=== PATIENT | male | born 1990 | race Two or more races ===

== ENCOUNTER 2023-02-21 21:16 | Inpatient (IN) | payer MEDICAID, OTHER ==
[~2023-02-21] VITALS: Ht 185.4 cm; Wt 68.0 kg
[2023-02-21 22:47] LABS: Alanine Aminotransferase 22 U/L (7-40); Albumin 3.9 g/dL (3.2-4.8); Alkaline Phosphatase 89 U/L (46-116); Anion Gap 9 (5-15); Aspartate Aminotransferase 49 U/L (13-40); BUN/Creatinine Ratio 15.6 (10.0-20.0); Blood Urea Nitrogen 23 mg/dL (9-23); Calcium 8.6 mg/dL (8.7-10.4); Carbon Dioxide 26 mmol/L (20-30); Chloride 91 mmol/L (98-107); Glucose 162 mg/dL (74-106); Magnesium 1.8 mg/dL (1.6-2.6); Potassium 3.5 mmol/L (3.5-5.1); Sodium 126 mmol/L (136-145)
[2023-02-21 22:48] LABS: Bilirubin, Total 1.1 mg/dL (0.2-1.0); Total Protein 7.3 g/dL (5.7-8.2)
[2023-02-21 23:26] LABS: Basophils # (auto) 0.1 10 ^3/uL (0-0.2); Basophils % (auto) 0.5 % (0.0-2.0); Eosinophils # (auto) 0 10 ^3/uL (0-0.8); Eosinophils % (auto) 0.4 % (0.0-7.0); Hematocrit 40.7 % (41.0-53.0); Hemoglobin 13.9 g/dL (13.5-17.5); Lymphocytes # (auto) 0.8 10 ^3/uL (0.4-5.4); Lymphocytes % (auto) 6.9 % (10.0-50.0); Mean Corpuscular Hemoglobin 34.7 pg (28.0-32.0); Mean Corpuscular Hgb Conc. 34.2 g/dL (32.0-36.0); Mean Corpuscular Volume 101.4 fL (80.0-100.0); Monocytes # (auto) 0.9 10 ^3/uL (0-1.3); Monocytes % (auto) 7.8 % (0.0-12.0); Neutrophils # (auto) 9.4 10 ^3/uL (1.6-8.6); Neutrophils % (auto) 84.4 % (37.0-80.0); Nucleated Red Blood Cells % 0.1 %; Red Blood Cells 4.01 10^6/uL (4.5-5.90); White Blood Cell 11.2 10^3/uL (4.4-10.8)
[2023-02-22] MEDS ORDERED: SODIUM CHLORIDE 0.9% 2,300 ML IV ONE (01:00)
[2023-02-22 01:11] LABS: INR 1.25 (0.9-1.15); Partial Thromboplastin Time 29.7 SEC (24.5-34.5); Prothrombin Time 12.9 sec (9.3-11.8)
[2023-02-22] MEDS ORDERED: DICYCLOMINE HCL (10MG/ML) 2 ML AMPULE IM ONE (01:30)
[2023-02-22] MEDS ORDERED: ONDANSETRON HCL 4 MG/2 ML VIAL IV ONE (01:30)
[2023-02-22 01:33] LABS: Urine Epithelial Cast None Seen /hpf (<5)
[2023-02-22 01:45] LABS: Urine Amorphous Crystal FEW /hpf (None Seen); Urine Bacteria NONE SEEN /hpf (None Seen); Urine Blood Negative /uL (Negative); Urine Clarity HAZY (Clear); Urine Color Yellow (Yellow); Urine Mucus FEW (None Seen); Urine Protein, UAD 1+ (Negative); Urine Specific Gravity 1.024 (1.001-1.035); Urine Urobilinogen Normal (Negative); Urine WBC 4 /hpf (0 - 3)
[2023-02-22 01:57] LABS: Amphetamine Screen, Urine Neg (NEGATIVE); Barbiturate Scree,Urine Neg (NEGATIVE); Benzodiazephine Screen, Urine Neg (NEGATIVE); Cannabinoid Screen, Urine Neg (NEGATIVE); Cocaine Screen, Urine Neg (NEGATIVE); Opiate Scree,Urine Neg (NEGATIVE); Phencyclidine Screen, Urine Neg (NEGATIVE)
[2023-02-22 02:22] LABS: Acetaminophen < 2.0 UG/ML (10.0-20.0)
[2023-02-22 02:24] LABS: Salicylate < 3.0 mg/dL (2.8-20.0)
[2023-02-22 02:36] LABS: Free T3 2.26 pg/mL (2.3-4.2)
[2023-02-22 04:58] LABS: COVID19 ANTIGEN SOFIA FIA NEGATIVE (NEGATIVE); Rapid Influenza A Negative (Negative); Rapid Influenza B Negative (Negative)
[2023-02-22 07:49] VITALS: PULSE 117; RESP 16; O2SAT 98
[2023-02-22] MEDS ORDERED: NITROGLYCERIN 0.4 MG SL TAB SL PRN (09:00)
[2023-02-22] MEDS ORDERED: ONDANSETRON HCL 4 MG/2 ML VIAL IV PRN (09:00)
[2023-02-22] MEDS ORDERED: DOCUSATE SOD 100 MG CAP PO PRN (09:00)
[2023-02-22] MEDS ORDERED: MORPHINE SULFATE INJ 2 MG/ml SYRG IV PRN ×2 (09:00)
[2023-02-22] MEDS ORDERED: HYDROcodone-ACET 5/325MG TAB PO PRN (09:00)
[2023-02-22] MEDS: SODIUM CHLORIDE 0.9% 1,000 ML IV SCH ×4 (09:30→22:11)
[2023-02-22 09:37] LABS: Basophils # (auto) 0.1 10 ^3/uL (0-0.2); Basophils % (auto) 0.8 % (0.0-2.0); Eosinophils # (auto) 0.1 10 ^3/uL (0-0.8); Eosinophils % (auto) 1.9 % (0.0-7.0); Hematocrit 35.7 % (41.0-53.0); Hemoglobin 12.1 g/dL (13.5-17.5); Lymphocytes # (auto) 0.9 10 ^3/uL (0.4-5.4); Mean Corpuscular Hemoglobin 34.3 pg (28.0-32.0); Mean Corpuscular Hgb Conc. 33.9 g/dL (32.0-36.0); Mean Corpuscular Volume 101.2 fL (80.0-100.0); Monocytes # (auto) 0.9 10 ^3/uL (0-1.3); Monocytes % (auto) 11.7 % (0.0-12.0); Neutrophils # (auto) 5.7 10 ^3/uL (1.6-8.6); Neutrophils % (auto) 74.6 % (37.0-80.0); Nucleated Red Blood Cells % 0.1 %; Red Blood Cells 3.52 10^6/uL (4.5-5.90); Red Cell Distribution Width 13.7 % (11.8-14.3); White Blood Cell 7.7 10^3/uL (4.4-10.8)
[2023-02-22] MEDS: ENOXAPARIN SOD 40 MG/0.4 ML SYRINGE SC SCH (10:44)
[2023-02-22] MEDS ORDERED: DEXTROSE (50%) 50ML SYRG IV PRN (10:45)
[2023-02-22] MEDS ORDERED: PANTOPRAZOLE 40 MG/10 ML VIAL INJ IV ONE (10:45)
[2023-02-22 11:41] VITALS: PULSE 112; RESP 14; O2SAT 96
[2023-02-22 11:53] LABS: Alanine Aminotransferase 23 U/L (7-40); Albumin 3.5 g/dL (3.2-4.8); Alkaline Phosphatase 77 U/L (46-116); Anion Gap 15 (5-15); Aspartate Aminotransferase 48 U/L (13-40); Blood Urea Nitrogen 24 mg/dL (9-23); Calcium 8.5 mg/dL (8.5-10.1); Carbon Dioxide 21 mmol/L (20-30); Chloride 96 mmol/L (98-107); Cholesterol 63 mg/dL (< 200); Glucose 126 mg/dL (74-106); HDL Cholesterol 8 mg/dL (40-59); LDL Cholesterol 29 mg/dL (< 100); Potassium 3.7 mmol/L (3.5-5.1); Triglycerides 135 mg/dL (< 150)
[2023-02-22 11:54] LABS: Bilirubin, Total 0.8 mg/dL (0.2-1.0); Total Protein 6.4 g/dL (5.7-8.2)
[2023-02-22 11:55] LABS: Sodium 132 mmol/L (136-145)
[2023-02-22] MEDS ORDERED: MEROPENEM 1GM IVPB 100 ML IV SCH (14:00)
[2023-02-22] MEDS: ACCU-CHEK COMFORT CURVE STRIP VI SCH ×3 (14:43→22:10)
[2023-02-22 20:30] VITALS: PULSE 112; RESP 26; O2SAT 96
[2023-02-22 23:30] VITALS: BP 109/58; PULSE 127; RESP 17; TEMP 97.5; O2SAT 94
[2023-02-23] VITALS (7 sets, daily range): BP systolic 86–118; BP diastolic 53–66; PULSE 112–126; RESP 16–21; TEMP 97.9–103; O2SAT 93–98
[2023-02-23] MEDS: ACCU-CHEK COMFORT CURVE STRIP VI SCH ×6 (02:00→21:26)
[2023-02-23] MEDS: SODIUM CHLORIDE 0.9% 1,000 ML IV SCH ×2 (06:20→13:00)
[2023-02-23 06:42] LABS: Eosinophils # (auto) 0.1 10 ^3/uL (0-0.8); Hematocrit 31.5 % (41.0-53.0); Hemoglobin 10.7 g/dL (13.5-17.5); Lymphocytes # (auto) 0.7 10 ^3/uL (0.4-5.4); Monocytes # (auto) 0.7 10 ^3/uL (0-1.3); Monocytes % (auto) 9.5 % (0.0-12.0); Neutrophils # (auto) 6.3 10 ^3/uL (1.6-8.6); Red Blood Cells 3.11 10^6/uL (4.5-5.90); White Blood Cell 7.9 10^3/uL (4.4-10.8)
[2023-02-23 06:45] LABS: Basophils # (auto) 0.1 10 ^3/uL (0-0.2); Basophils % (auto) 0.7 % (0.0-2.0); Lymphocytes % (auto) 9.5 % (10.0-50.0); Mean Corpuscular Hemoglobin 34.3 pg (28.0-32.0); Mean Corpuscular Hgb Conc. 33.9 g/dL (32.0-36.0); Mean Corpuscular Volume 101.2 fL (80.0-100.0); Neutrophils % (auto) 79.3 % (37.0-80.0); Red Cell Distribution Width 13.8 % (11.8-14.3)
[2023-02-23 07:04] LABS: Alanine Aminotransferase 16 U/L (7-40); Albumin 2.7 g/dL (3.2-4.8); Alkaline Phosphatase 59 U/L (46-116); Anion Gap 12 (5-15); Aspartate Aminotransferase 30 U/L (13-40); BUN/Creatinine Ratio 19.5 (10.0-20.0); Bilirubin, Total 0.7 mg/dL (0.2-1.0); Blood Urea Nitrogen 17 mg/dL (9-23); Calcium 7.8 mg/dL (8.5-10.1); Carbon Dioxide 20 mmol/L (20-30); Chloride 103 mmol/L (98-107); Glucose 97 mg/dL (74-106); Sodium 135 mmol/L (136-145); Total Protein 5.2 g/dL (5.7-8.2)
[2023-02-23 08:55] LABS: Hepatitis B Surface Antigen Negative (Negative)
[2023-02-23 09:17] LABS: Hepatitis C Antibody Negative (Negative)
[2023-02-23] MEDS: PANTOPRAZOLE 40 MG/10 ML VIAL INJ IV SCH (09:42)
[2023-02-23] MEDS: ENOXAPARIN SOD 40 MG/0.4 ML SYRINGE SC SCH (09:43)
[2023-02-23 11:24] LABS: Free T4 (Free Thyroxine) 1.2 ng/dL (0.89-1.76)
[2023-02-23 14:46] LABS: Folate (Folic Acid) 7.04 ng/mL (>5.38)
[2023-02-23] MEDS: FOLIC ACID 1 MG, MULTIPLE VITAMIN 10 ML, MAGNESIUM SULF SDV 50% 8 MEQ, THIAMINE INJ 100... INJ SCH ×5 (18:38)
[2023-02-24] VITALS (7 sets, daily range): BP systolic 86–118; BP diastolic 38–70; PULSE 55–138; RESP 16–22; TEMP 97.4–100.5; O2SAT 90–99
[2023-02-24] MEDS: ACCU-CHEK COMFORT CURVE STRIP VI SCH ×3 (01:27→09:40)
[2023-02-24] MEDS: SODIUM CHLORIDE 0.9% 1,000 ML IV SCH ×2 (03:06→09:00)
[2023-02-24] MEDS: PANTOPRAZOLE 40 MG/10 ML VIAL INJ IV SCH (09:40)
[2023-02-24] MEDS: ENOXAPARIN SOD 40 MG/0.4 ML SYRINGE SC SCH (09:40)
[2023-02-24] MEDS ORDERED: MORPHINE SULFATE INJ 2 MG/ml SYRG IV PRN (10:15)
[2023-02-24] MEDS ORDERED: LORazepam 2MG/ML-1ML VIAL IV PRN (11:00)
[2023-02-24] MEDS: ACETAMINOPHEN 325 MG TAB PO PRN (11:18)
[2023-02-24 11:49] LABS: Chloride 100 mmol/L (98-107); Potassium 3.9 mmol/L (3.5-5.1); Sodium 131 mmol/L (136-145)
[2023-02-24 11:50] LABS: Anion Gap 9 (5-15); Calcium 7.8 mg/dL (8.5-10.1); Carbon Dioxide 22 mmol/L (20-30)
[2023-02-24 11:55] LABS: BUN/Creatinine Ratio 11.4 (10.0-20.0); Basophils # (auto) 0 10 ^3/uL (0-0.2); Basophils % (auto) 0.6 % (0.0-2.0); Blood Urea Nitrogen 9 mg/dL (9-23); Eosinophils # (auto) 0.1 10 ^3/uL (0-0.8); Eosinophils % (auto) 1.9 % (0.0-7.0); Glucose 132 mg/dL (74-106); Hemoglobin 10.7 g/dL (13.5-17.5); Lymphocytes # (auto) 0.5 10 ^3/uL (0.4-5.4); Mean Corpuscular Hemoglobin 33.9 pg (28.0-32.0); Mean Corpuscular Hgb Conc. 33.5 g/dL (32.0-36.0); Mean Corpuscular Volume 101.2 fL (80.0-100.0); Monocytes # (auto) 0.7 10 ^3/uL (0-1.3); Monocytes % (auto) 8.7 % (0.0-12.0); Neutrophils # (auto) 6.3 10 ^3/uL (1.6-8.6); Neutrophils % (auto) 81.8 % (37.0-80.0); Red Blood Cells 3.16 10^6/uL (4.5-5.90); White Blood Cell 7.7 10^3/uL (4.4-10.8)
[2023-02-24] MEDS: LACTATED RINGER'S 1,000 ML IV SCH (12:32)
[2023-02-24] MEDS: FOLIC ACID 1 MG, MULTIPLE VITAMIN 10 ML, MAGNESIUM SULF SDV 50% 8 MEQ, THIAMINE INJ 100... INJ SCH ×5 (18:35)
[2023-02-25] VITALS (20 sets, daily range): BP systolic 102–119; BP diastolic 58–77; PULSE 118–137; RESP 18–22; TEMP 98–102; O2SAT 91–100
[2023-02-25] MEDS: LACTATED RINGER'S 1,000 ML IV SCH ×3 (02:43→17:00)
[2023-02-25 05:26] LABS: Hematocrit 30.8 % (41.0-53.0); Hemoglobin 10.6 g/dL (13.5-17.5); Mean Corpuscular Hemoglobin 34.5 pg (28.0-32.0); Mean Corpuscular Hgb Conc. 34.3 g/dL (32.0-36.0); Mean Corpuscular Volume 100.7 fL (80.0-100.0); Red Blood Cells 3.06 10^6/uL (4.5-5.90); Red Cell Distribution Width 13.6 % (11.8-14.3); White Blood Cell 9.3 10^3/uL (4.4-10.8)
[2023-02-25 05:33] LABS: Anion Gap 5 (5-15); Carbon Dioxide 27 mmol/L (20-30); Chloride 99 mmol/L (98-107); Potassium 3.7 mmol/L (3.5-5.1); Sodium 131 mmol/L (136-145)
[2023-02-25 05:35] LABS: Calcium 7.5 mg/dL (8.7-10.4)
[2023-02-25 05:39] LABS: BUN/Creatinine Ratio 9.2 (10.0-20.0); Blood Urea Nitrogen 7 mg/dL (9-23); Glucose 110 mg/dL (74-106); Lipase 26 U/L (12-53)
[2023-02-25 06:16] LABS: Basophils % (manual) 0 (0.0-2.0); Blast Cells 0; Metamyelocytes % 0; Myelocytes % 0; Promyelocytes % 0; Reactive Lymphocytes 0
[2023-02-25 08:16] LABS: Band Neutrophils % (manual) 12; Eosinophils % (manual) 2 (0-7); Lymphocytes % (manual) 9 (10.0-50.0); Macrocytosis Slight; Monocytes % (manual) 5 (0-12); Platelet Estimate Adequate
[2023-02-25] MEDS ORDERED: cefTRIAXone 1GM/50ML D5W 50 ML IV SCH (09:00)
[2023-02-25] MEDS: PANTOPRAZOLE 40 MG/10 ML VIAL INJ IV SCH (09:43)
[2023-02-25] MEDS: ENOXAPARIN SOD 40 MG/0.4 ML SYRINGE SC SCH (09:44)
[2023-02-25] MEDS: ACETAMINOPHEN 325 MG TAB PO PRN ×2 (09:57→20:33)
[2023-02-25] MEDS ORDERED: IOHEXOL 300 MG/ML 100ML BOTTLE IJ ONE (16:00)
[2023-02-25] MEDS: FOLIC ACID 1 MG, MULTIPLE VITAMIN 10 ML, MAGNESIUM SULF SDV 50% 8 MEQ, THIAMINE INJ 100... INJ SCH ×5 (18:15)
[2023-02-25] MEDS: MEROPENEM 1GM IVPB 100 ML IV SCH (21:56)
[2023-02-25] MEDS ORDERED: PIPERACILLIN-TAZOB 3.375GM 100 ML IV SCH (22:00)
[2023-02-26] VITALS (19 sets, daily range): BP systolic 99–119; BP diastolic 57–80; PULSE 103–130; RESP 16–37; TEMP 99.5–101.1; O2SAT 93–100
[2023-02-26] MEDS: ACETAMINOPHEN 325 MG TAB PO PRN ×3 (03:03→21:08)
[2023-02-26] MEDS: LACTATED RINGER'S 1,000 ML IV SCH ×3 (03:10→23:00)
[2023-02-26] MEDS: MEROPENEM 1GM IVPB 100 ML IV SCH ×3 (06:37→21:08)
[2023-02-26 09:18] LABS: Red Cell Distribution Width 13.8 % (11.8-14.3)
[2023-02-26 09:20] LABS: Hematocrit 31.6 % (41.0-53.0); Hemoglobin 10.7 g/dL (13.5-17.5); Mean Corpuscular Hemoglobin 34.8 pg (28.0-32.0); Mean Corpuscular Hgb Conc. 33.8 g/dL (32.0-36.0); Mean Corpuscular Volume 102.8 fL (80.0-100.0); Red Blood Cells 3.07 10^6/uL (4.5-5.90); White Blood Cell 8.4 10^3/uL (4.4-10.8)
[2023-02-26 09:24] LABS: Basophils % (manual) 0 (0.0-2.0); Blast Cells 0; Eosinophils % (manual) 0 (0-7); Metamyelocytes % 0; Myelocytes % 0; Promyelocytes % 0; Reactive Lymphocytes 0
[2023-02-26 09:29] LABS: Band Neutrophils % (manual) 7; Lymphocytes % (manual) 6 (10.0-50.0); Monocytes % (manual) 9 (0-12)
[2023-02-26 09:30] LABS: Macrocytosis Slight; Platelet Estimate Adequate
[2023-02-26 09:31] LABS: Alanine Aminotransferase 12 U/L (7-40); Albumin 2.9 g/dL (3.2-4.8); Alkaline Phosphatase 63 U/L (46-116); Anion Gap 9 (5-15); Aspartate Aminotransferase 21 U/L (13-40); Bilirubin, Total 0.7 mg/dL (0.2-1.0); Calcium 7.9 mg/dL (8.5-10.1); Carbon Dioxide 24 mmol/L (20-30); Chloride 101 mmol/L (98-107); Glucose 98 mg/dL (74-106); Potassium 3.6 mmol/L (3.5-5.1); Sodium 134 mmol/L (136-145); Total Protein 5.7 g/dL (5.7-8.2)
[2023-02-26 09:41] LABS: BUN/Creatinine Ratio 9.1 (10.0-20.0); Blood Urea Nitrogen < 5 mg/dL (9-23)
[2023-02-26] MEDS: ENOXAPARIN SOD 40 MG/0.4 ML SYRINGE SC SCH (10:02)
[2023-02-26] MEDS: PANTOPRAZOLE 40 MG/10 ML VIAL INJ IV SCH (10:02)
[2023-02-26] MEDS: FOLIC ACID 1 MG, MULTIPLE VITAMIN 10 ML, MAGNESIUM SULF SDV 50% 8 MEQ, THIAMINE INJ 100... INJ SCH ×5 (18:23)
[2023-02-26 20:06] LABS: Vitamin D 25-Hydroxy 4.4 ng/mL (.); Vitamin D-2 25-Hydroxy <1.0 ng/mL (.); Vitamin D-3 25-Hydroxy 4.4 ng/mL (.)
[2023-02-27] VITALS (25 sets, daily range): BP systolic 95–127; BP diastolic 58–79; PULSE 110–129; RESP 17–32; TEMP 98.5–101.9; O2SAT 95–100
[2023-02-27] MEDS: ACETAMINOPHEN 325 MG TAB PO PRN (04:45)
[2023-02-27] MEDS: MEROPENEM 1GM IVPB 100 ML IV SCH ×3 (04:45→22:58)
[2023-02-27 06:13] LABS: Basophils % (auto) 0.5 % (0.0-2.0); Eosinophils # (auto) 0.1 10 ^3/uL (0-0.8); Eosinophils % (auto) 1.2 % (0.0-7.0); Hematocrit 30.8 % (41.0-53.0); Mean Corpuscular Hemoglobin 34.4 pg (28.0-32.0)
[2023-02-27 06:15] LABS: Basophils # (auto) 0.1 10 ^3/uL (0-0.2); Hemoglobin 10.4 g/dL (13.5-17.5); Lymphocytes # (auto) 0.5 10 ^3/uL (0.4-5.4); Lymphocytes % (auto) 5.6 % (10.0-50.0); Mean Corpuscular Hgb Conc. 33.8 g/dL (32.0-36.0); Mean Corpuscular Volume 101.6 fL (80.0-100.0); Monocytes # (auto) 0.6 10 ^3/uL (0-1.3); Monocytes % (auto) 6.7 % (0.0-12.0); Neutrophils # (auto) 8.2 10 ^3/uL (1.6-8.6); Red Blood Cells 3.03 10^6/uL (4.5-5.90); White Blood Cell 9.6 10^3/uL (4.4-10.8)
[2023-02-27 06:27] LABS: Alanine Aminotransferase 10 U/L (7-40); Albumin 2.8 g/dL (3.2-4.8); Alkaline Phosphatase 71 U/L (46-116); Anion Gap 9 (5-15); BUN/Creatinine Ratio 12.3 (10.0-20.0); Blood Urea Nitrogen 7 mg/dL (9-23); Calcium 7.6 mg/dL (8.7-10.4); Carbon Dioxide 25 mmol/L (20-30); Chloride 98 mmol/L (98-107); Glucose 103 mg/dL (74-106); Potassium 3.8 mmol/L (3.5-5.1); Sodium 132 mmol/L (136-145)
[2023-02-27 06:28] LABS: Aspartate Aminotransferase 22 U/L (13-40); Bilirubin, Total 0.5 mg/dL (0.2-1.0); Total Protein 5.5 g/dL (5.7-8.2)
[2023-02-27] MEDS: PANTOPRAZOLE 40 MG/10 ML VIAL INJ IV SCH (10:48)
[2023-02-27] MEDS: LACTATED RINGER'S 1,000 ML IV SCH (10:49)
[2023-02-27] MEDS: ENOXAPARIN SOD 40 MG/0.4 ML SYRINGE SC SCH (10:49)
[2023-02-27 13:06] LABS: Mean Corpuscular Hemoglobin 33.9 pg (28.0-32.0); Mean Corpuscular Volume 103.4 fL (80.0-100.0)
[2023-02-27 13:07] LABS: Hematocrit 30.5 % (41.0-53.0); Mean Corpuscular Hgb Conc. 32.8 g/dL (32.0-36.0); Red Blood Cells 2.95 10^6/uL (4.5-5.90); White Blood Cell 11.1 10^3/uL (4.4-10.8)
[2023-02-27 13:17] LABS: Basophils % (manual) 0 (0.0-2.0); Blast Cells 0; Eosinophils % (manual) 0 (0-7); Metamyelocytes % 0; Myelocytes % 0; Promyelocytes % 0; Reactive Lymphocytes 0
[2023-02-27 13:24] LABS: Band Neutrophils % (manual) 7; Monocytes % (manual) 9 (0-12)
[2023-02-27 13:25] LABS: Lymphocytes % (manual) 6 (10.0-50.0); Macrocytosis Slight; Platelet Estimate Adequate
[2023-02-27] MEDS ORDERED: PPN PER PHARMACY 0 ML IV SCH (14:45)
[2023-02-27] MEDS ORDERED: AMINO ACID INFUSION IN D10W 1,000 ML IV NR (20:00)
[2023-02-27] MEDS: ACETAMINOPHEN 650 MG RECT SUPP PR PRN (21:32)
[2023-02-28] VITALS (26 sets, daily range): BP systolic 110–118; BP diastolic 68–81; PULSE 111–128; RESP 18–42; TEMP 98.6–100.5; O2SAT 95–100
[2023-02-28] MEDS: ACCU-CHEK COMFORT CURVE STRIP VI SCH ×4 (00:11→23:19)
[2023-02-28 04:58] LABS: Basophils # (auto) 0 10 ^3/uL (0-0.2); Eosinophils # (auto) 0.1 10 ^3/uL (0-0.8); Lymphocytes # (auto) 0.6 10 ^3/uL (0.4-5.4)
[2023-02-28 05:00] LABS: Basophils % (auto) 0.1 % (0.0-2.0); Eosinophils % (auto) 1.2 % (0.0-7.0); Hemoglobin 10.5 g/dL (13.5-17.5); Lymphocytes % (auto) 5.3 % (10.0-50.0); Mean Corpuscular Hemoglobin 34.4 pg (28.0-32.0); Mean Corpuscular Volume 101.1 fL (80.0-100.0); Monocytes # (auto) 0.8 10 ^3/uL (0-1.3); Monocytes % (auto) 7.3 % (0.0-12.0); Neutrophils # (auto) 8.9 10 ^3/uL (1.6-8.6); Neutrophils % (auto) 86.1 % (37.0-80.0); Red Blood Cells 3.06 10^6/uL (4.5-5.90); White Blood Cell 10.3 10^3/uL (4.4-10.8)
[2023-02-28] MEDS: ACETAMINOPHEN 650 MG RECT SUPP PR PRN (05:08)
[2023-02-28 05:21] LABS: Alanine Aminotransferase 13 U/L (7-40); Albumin 2.7 g/dL (3.2-4.8); Alkaline Phosphatase 83 U/L (46-116); Anion Gap 6 (5-15); Aspartate Aminotransferase 23 U/L (13-40); BUN/Creatinine Ratio 19.3 (10.0-20.0); Bilirubin, Total 0.5 mg/dL (0.2-1.0); Blood Urea Nitrogen 11 mg/dL (9-23); Calcium 7.8 mg/dL (8.5-10.1); Carbon Dioxide 28 mmol/L (20-30); Chloride 101 mmol/L (98-107); Cholesterol 61 mg/dL (< 200); Glucose 119 mg/dL (74-106); HDL Cholesterol 8 mg/dL (40-59); LDL Cholesterol 25 mg/dL (< 100); Phosphorus 2.6 mg/dL (2.4-5.1); Potassium 3.8 mmol/L (3.5-5.1); Sodium 135 mmol/L (136-145); Total Protein 5.4 g/dL (5.7-8.2); Triglycerides 128 mg/dL (< 150)
[2023-02-28] MEDS: InsuLIN REG 1unit/0.01ml Soln (100units/ml) SC SCH ×4 (06:00→23:19)
[2023-02-28] MEDS: MEROPENEM 1GM IVPB 100 ML IV SCH ×3 (06:24→22:53)
[2023-02-28 06:47] LABS: Lipase 22 U/L (12-53); Magnesium 1.5 mg/dL (1.6-2.6)
[2023-02-28] MEDS: ENOXAPARIN SOD 40 MG/0.4 ML SYRINGE SC SCH (09:35)
[2023-02-28] MEDS: PANTOPRAZOLE 40 MG/10 ML VIAL INJ IV SCH (09:45)
[2023-02-28] MEDS ORDERED: LIDOCAINE 2%HCL (LOCAL ANESTH.) INJ 10ml MDV ONE (10:10)
[2023-02-28] MEDS ORDERED: MIDAZOLAM HCL 2MG/2ML 2ml VIAL (1mg/ml) IV ONE (10:15)
[2023-02-28] MEDS ORDERED: fentaNYL CITRATE 100 MCG/2 ML VL IV ONE (10:15)
[2023-02-28] MEDS ORDERED: NALOXONE HCL 1MG/ML 2ML SYRINGE ONE (11:49)
[2023-02-28] MEDS ORDERED: VANCOMYCIN PER PHARMACY 0 MG IV SCH (14:30)
[2023-02-28] MEDS ORDERED: VANCOMYCIN 1GM/200ML 200 ML IV ONE (15:00)
[2023-02-28] MEDS: MAGNESIUM SULFATE 1GM/100ML 100 ML IV SCH ×2 (16:43→17:25)
[2023-02-28] MEDS: VANCOMYCIN 1GM/200ML 200 ML IV SCH (17:26)
[2023-02-28] MEDS ORDERED: TPN PER PHARMACY 0 ML IV SCH (18:15)
[2023-02-28] MEDS ORDERED: CLINIMIX PER PHARMACY 0 ML IV SCH (18:30)
[2023-02-28] MEDS ORDERED: PPN PER PHARMACY IV NR ×20 (20:00)
[2023-02-28] MEDS ORDERED: DEXTROSE (50%) 50ML SYRG IV SCH ×2 (20:30)
[2023-02-28] MEDS: SODIUM CHLOR 0.9% PF (SALINE LOCK) 10ML VIAL/SYR IV SCH (22:53)
[2023-03-01] VITALS (51 sets, daily range): BP systolic 94–132; BP diastolic 62–89; PULSE 105–131; RESP 13–46; TEMP 98.8–101.1; O2SAT 87–98
[2023-03-01] MEDS ORDERED: VANCOMYCIN 1GM/200ML 200 ML IV ONE (02:30)
[2023-03-01] MEDS: VANCOMYCIN 1GM/200ML 200 ML IV SCH ×4 (02:37→20:35)
[2023-03-01] MEDS: MEROPENEM 1GM IVPB 100 ML IV SCH ×3 (05:47→22:30)
[2023-03-01] MEDS: ACCU-CHEK COMFORT CURVE STRIP VI SCH ×3 (06:00→17:30)
[2023-03-01] MEDS: InsuLIN REG 1unit/0.01ml Soln (100units/ml) SC SCH ×3 (06:00→17:30)
[2023-03-01 06:39] LABS: Basophils # (auto) 0.1 10 ^3/uL (0-0.2); Basophils % (auto) 0.6 % (0.0-2.0); Eosinophils # (auto) 0.3 10 ^3/uL (0-0.8); Eosinophils % (auto) 2.4 % (0.0-7.0); Hematocrit 30.2 % (41.0-53.0); Hemoglobin 9.8 g/dL (13.5-17.5); Lymphocytes # (auto) 0.8 10 ^3/uL (0.4-5.4); Lymphocytes % (auto) 6.3 % (10.0-50.0); Mean Corpuscular Hemoglobin 33.7 pg (28.0-32.0); Mean Corpuscular Hgb Conc. 32.6 g/dL (32.0-36.0); Mean Corpuscular Volume 103.6 fL (80.0-100.0); Monocytes % (auto) 8.2 % (0.0-12.0); Neutrophils % (auto) 82.5 % (37.0-80.0); Red Blood Cells 2.91 10^6/uL (4.5-5.90); Red Cell Distribution Width 14.3 % (11.8-14.3); White Blood Cell 12.1 10^3/uL (4.4-10.8)
[2023-03-01 06:55] LABS: Alanine Aminotransferase 10 U/L (7-40); Albumin 2.7 g/dL (3.2-4.8); Alkaline Phosphatase 119 U/L (46-116); Anion Gap 6 (5-15); Aspartate Aminotransferase 25 U/L (13-40); Bilirubin, Total 0.4 mg/dL (0.2-1.0); Blood Urea Nitrogen 9 mg/dL (9-23); Calcium 7.3 mg/dL (8.7-10.4); Carbon Dioxide 27 mmol/L (20-30); Chloride 101 mmol/L (98-107); Glucose 106 mg/dL (74-106); Magnesium 1.9 mg/dL (1.6-2.6); Phosphorus 2.3 mg/dL (2.4-5.1); Sodium 134 mmol/L (136-145)
[2023-03-01 06:56] LABS: Total Protein 5.5 g/dL (5.7-8.2)
[2023-03-01] MEDS: ACETAMINOPHEN 650 MG RECT SUPP PR PRN ×2 (08:33→21:03)
[2023-03-01] MEDS: PANTOPRAZOLE 40 MG/10 ML VIAL INJ IV SCH (09:25)
[2023-03-01] MEDS: ENOXAPARIN SOD 40 MG/0.4 ML SYRINGE SC SCH (09:25)
[2023-03-01] MEDS: SODIUM CHLOR 0.9% PF (SALINE LOCK) 10ML VIAL/SYR IV SCH ×2 (09:25→22:31)
[2023-03-01 10:06] LABS: Protein, Body Fluid 2.8 g/dL (.)
[2023-03-01] MEDS ORDERED: CALCIUM GLUC 1,000mg/50ml-NS 50 ML IV ONE (10:45)
[2023-03-01 11:07] LABS: Glucose, Body Fluid <2 mg/dL (.)
[2023-03-01] MEDS ORDERED: SODIUM PHOSPHATES 20 MEQ in SODIUM CHL 0.9% 100 ML IV ONE (12:00)
[2023-03-01] MEDS ORDERED: TPN PER PHARMACY IV NR ×11 (20:00)
[2023-03-02] VITALS (30 sets, daily range): BP systolic 107–122; BP diastolic 66–80; PULSE 108–132; RESP 21–41; TEMP 99.1–100.6; O2SAT 93–97
[2023-03-02] MEDS: ACCU-CHEK COMFORT CURVE STRIP VI SCH ×4 (00:12→17:50)
[2023-03-02] MEDS: VANCOMYCIN 1GM/200ML 200 ML IV SCH ×4 (00:12→17:56)
[2023-03-02] MEDS: InsuLIN REG 1unit/0.01ml Soln (100units/ml) SC SCH ×4 (05:18→17:50)
[2023-03-02] MEDS: MEROPENEM 1GM IVPB 100 ML IV SCH ×3 (05:20→22:59)
[2023-03-02 05:36] LABS: Alanine Aminotransferase 16 U/L (7-40); Alkaline Phosphatase 72 U/L (46-116); Anion Gap 8 (5-15); BUN/Creatinine Ratio 22.2 (10.0-20.0); Blood Urea Nitrogen 8 mg/dL (9-23); Calcium 6.5 mg/dL (8.7-10.4); Carbon Dioxide 22 mmol/L (20-30); Chloride 98 mmol/L (98-107); Glucose 112 mg/dL (74-106); Magnesium 1.5 mg/dL (1.6-2.6); Potassium 3.6 mmol/L (3.5-5.1)
[2023-03-02 05:37] LABS: Albumin 2.3 g/dL (3.2-4.8); Aspartate Aminotransferase 27 U/L (13-40)
[2023-03-02 05:38] LABS: Bilirubin, Total 0.3 mg/dL (0.2-1.0); Phosphorus 1.9 mg/dL (2.4-5.1); Total Protein 4.7 g/dL (5.7-8.2)
[2023-03-02] MEDS: ACETAMINOPHEN 650 MG RECT SUPP PR PRN (05:58)
[2023-03-02 06:30] LABS: Sodium 128 mmol/L (136-145)
[2023-03-02] MEDS ORDERED: FUROSEMIDE 20 MG/2 ML VIAL IV ONE (09:45)
[2023-03-02] MEDS: SODIUM CHLOR 0.9% PF (SALINE LOCK) 10ML VIAL/SYR IV SCH ×2 (10:07→22:00)
[2023-03-02] MEDS: PANTOPRAZOLE 40 MG/10 ML VIAL INJ IV SCH (10:07)
[2023-03-02] MEDS: ENOXAPARIN SOD 40 MG/0.4 ML SYRINGE SC SCH (10:07)
[2023-03-02] MEDS: MAGNESIUM SULFATE 1GM/100ML 100 ML IV SCH ×2 (11:54→12:52)
[2023-03-02] MEDS: CALCIUM GLUC 1,000mg/50ml-NS 50 ML IV SCH ×2 (14:01→14:41)
[2023-03-02] MEDS ORDERED: POTASSIUM PHOSPHATE 44 MEQ in D5W 5% 250 ML IV ONE (16:00)
[2023-03-02] MEDS ORDERED: TPN PER PHARMACY IV NR ×11 (20:00)
[2023-03-03] VITALS (15 sets, daily range): BP systolic 102–114; BP diastolic 55–71; PULSE 93–130; RESP 13–35; TEMP 99–102.5; O2SAT 91–98
[2023-03-03] MEDS: VANCOMYCIN 1GM/200ML 200 ML IV SCH ×3 (00:37→12:41)
[2023-03-03] MEDS: ACCU-CHEK COMFORT CURVE STRIP VI SCH ×5 (00:37→23:54)
[2023-03-03] MEDS: InsuLIN REG 1unit/0.01ml Soln (100units/ml) SC SCH ×5 (00:43→23:55)
[2023-03-03] MEDS: ACETAMINOPHEN 650 MG RECT SUPP PR PRN ×2 (00:48→07:24)
[2023-03-03 05:27] LABS: Basophils # (auto) 0 10 ^3/uL (0-0.2); Basophils % (auto) 0.4 % (0.0-2.0); Eosinophils # (auto) 0.1 10 ^3/uL (0-0.8); Eosinophils % (auto) 1.1 % (0.0-7.0); Hematocrit 28.1 % (41.0-53.0); Hemoglobin 9.4 g/dL (13.5-17.5); Lymphocytes # (auto) 0.9 10 ^3/uL (0.4-5.4); Lymphocytes % (auto) 6.5 % (10.0-50.0); Mean Corpuscular Hgb Conc. 33.5 g/dL (32.0-36.0); Mean Corpuscular Volume 101.3 fL (80.0-100.0); Monocytes # (auto) 1.2 10 ^3/uL (0-1.3); Monocytes % (auto) 8.7 % (0.0-12.0); Neutrophils # (auto) 11.1 10 ^3/uL (1.6-8.6); Neutrophils % (auto) 83.3 % (37.0-80.0); Red Blood Cells 2.78 10^6/uL (4.5-5.90); Red Cell Distribution Width 14.1 % (11.8-14.3); White Blood Cell 13.3 10^3/uL (4.4-10.8)
[2023-03-03 05:56] LABS: Alanine Aminotransferase 26 U/L (7-40); Albumin 2.7 g/dL (3.2-4.8); Alkaline Phosphatase 90 U/L (46-116); Anion Gap 6 (5-15); Aspartate Aminotransferase 38 U/L (13-40); Blood Urea Nitrogen 12 mg/dL (9-23); Calcium 7.6 mg/dL (8.7-10.4); Carbon Dioxide 25 mmol/L (20-30); Chloride 102 mmol/L (98-107); Glucose 129 mg/dL (74-106); Potassium 4.5 mmol/L (3.5-5.1)
[2023-03-03 05:57] LABS: Bilirubin, Total 0.3 mg/dL (0.2-1.0); Total Protein 5.8 g/dL (5.7-8.2)
[2023-03-03 06:21] LABS: Sodium 133 mmol/L (136-145)
[2023-03-03] MEDS: MEROPENEM 1GM IVPB 100 ML IV SCH (06:31)
[2023-03-03] MEDS ORDERED: LIDOCAINE 2%HCL (LOCAL ANESTH.) INJ 10ml MDV ONE (08:51)
[2023-03-03] MEDS ORDERED: MIDAZOLAM HCL 2MG/2ML 2ml VIAL (1mg/ml) IV ONE (09:15)
[2023-03-03] MEDS ORDERED: fentaNYL CITRATE 100 MCG/2 ML VL IV ONE (09:15)
[2023-03-03 09:29] LABS: INR 1.21 (0.9-1.15); Partial Thromboplastin Time 29.3 SEC (24.5-34.5); Prothrombin Time 12.5 sec (9.3-11.8)
[2023-03-03] MEDS ORDERED: NALOXONE HCL 1MG/ML 2ML SYRINGE ONE (09:34)
[2023-03-03] MEDS: ENOXAPARIN SOD 40 MG/0.4 ML SYRINGE SC SCH (10:00)
[2023-03-03] MEDS: PANTOPRAZOLE 40 MG/10 ML VIAL INJ IV SCH (11:18)
[2023-03-03] MEDS: SODIUM CHLOR 0.9% PF (SALINE LOCK) 10ML VIAL/SYR IV SCH ×2 (11:19→21:37)
[2023-03-03] MEDS ORDERED: ACETAMINOPHEN IV 1000 MG/100ML (10MG/ML) IV PRN ×2 (11:30→21:00)
[2023-03-03] MEDS ORDERED: LACTATED RINGER'S 1,000 ML IV SCH (11:45)
[2023-03-03] MEDS ORDERED: CEFTRIAXONE SODIUM 2 GM in D5W 5% 100 ML IV ONE (13:15)
[2023-03-03] MEDS: TPN PER PHARMACY IV NR ×10 (20:33)
[2023-03-04] VITALS (17 sets, daily range): BP systolic 106–119; BP diastolic 62–76; PULSE 116–139; RESP 19–31; TEMP 98.3–99.2; O2SAT 90–99
[2023-03-04 05:34] LABS: Basophils # (auto) 0.1 10 ^3/uL (0-0.2); Basophils % (auto) 0.4 % (0.0-2.0); Eosinophils # (auto) 0.1 10 ^3/uL (0-0.8); Eosinophils % (auto) 0.7 % (0.0-7.0); Hematocrit 29.6 % (41.0-53.0); Hemoglobin 9.8 g/dL (13.5-17.5); Lymphocytes # (auto) 0.9 10 ^3/uL (0.4-5.4); Mean Corpuscular Hemoglobin 33.6 pg (28.0-32.0); Mean Corpuscular Hgb Conc. 33.2 g/dL (32.0-36.0); Monocytes # (auto) 1.1 10 ^3/uL (0-1.3); Monocytes % (auto) 8.4 % (0.0-12.0); Neutrophils # (auto) 10.9 10 ^3/uL (1.6-8.6); Neutrophils % (auto) 83.5 % (37.0-80.0); Red Blood Cells 2.93 10^6/uL (4.5-5.90); White Blood Cell 13.1 10^3/uL (4.4-10.8)
[2023-03-04 05:44] LABS: Alanine Aminotransferase 40 U/L (7-40); Alkaline Phosphatase 103 U/L (46-116); Calcium 7.4 mg/dL (8.7-10.4); Chloride 101 mmol/L (98-107)
[2023-03-04 05:45] LABS: Albumin 2.8 g/dL (3.2-4.8); Anion Gap 6 (5-15); Aspartate Aminotransferase 46 U/L (13-40); BUN/Creatinine Ratio 26.8 (10.0-20.0); Bilirubin, Total 0.4 mg/dL (0.2-1.0); Blood Urea Nitrogen 11 mg/dL (9-23); Carbon Dioxide 24 mmol/L (20-30); Glucose 133 mg/dL (74-106); Magnesium 1.9 mg/dL (1.6-2.6); Phosphorus 2.5 mg/dL (2.4-5.1); Potassium 4.3 mmol/L (3.5-5.1); Sodium 131 mmol/L (136-145)
[2023-03-04] MEDS: InsuLIN REG 1unit/0.01ml Soln (100units/ml) SC SCH ×3 (06:17→17:38)
[2023-03-04] MEDS: ACCU-CHEK COMFORT CURVE STRIP VI SCH ×3 (06:17→17:32)
[2023-03-04] MEDS ORDERED: CALCIUM GLUC 1,000mg/50ml-NS 50 ML IV ONE (10:30)
[2023-03-04] MEDS: SODIUM CHLOR 0.9% PF (SALINE LOCK) 10ML VIAL/SYR IV SCH ×2 (10:45→22:00)
[2023-03-04] MEDS: PANTOPRAZOLE 40 MG/10 ML VIAL INJ IV SCH (10:45)
[2023-03-04] MEDS: ENOXAPARIN SOD 40 MG/0.4 ML SYRINGE SC SCH (10:45)
[2023-03-04] MEDS: CEFTRIAXONE SODIUM 2 GM in D5W 5% 100 ML IV SCH (10:45)
[2023-03-04] MEDS ORDERED: SODIUM PHOSPHATES 20 MEQ in SODIUM CHL 0.9% 100 ML IV ONE (11:00)
[2023-03-04] MEDS: TPN PER PHARMACY IV NR ×10 (19:56)
[2023-03-04] MEDS ORDERED: TPN PER PHARMACY IV NR ×11 (20:00)
[2023-03-05] VITALS (20 sets, daily range): BP systolic 96–112; BP diastolic 50–69; PULSE 111–134; RESP 20–35; TEMP 98.2–100.7; O2SAT 91–99
[2023-03-05] MEDS: ACETAMINOPHEN 650 MG RECT SUPP PR PRN (04:14)
[2023-03-05] MEDS: ACCU-CHEK COMFORT CURVE STRIP VI SCH ×4 (06:00→16:54)
[2023-03-05] MEDS: InsuLIN REG 1unit/0.01ml Soln (100units/ml) SC SCH ×4 (06:00→17:36)
[2023-03-05 08:25] LABS: Basophils # (auto) 0.1 10 ^3/uL (0-0.2); Basophils % (auto) 0.5 % (0.0-2.0); Eosinophils # (auto) 0.1 10 ^3/uL (0-0.8); Eosinophils % (auto) 0.6 % (0.0-7.0); Hemoglobin 10.1 g/dL (13.5-17.5)
[2023-03-05 08:27] LABS: Hematocrit 30.2 % (41.0-53.0); Lymphocytes # (auto) 1.2 10 ^3/uL (0.4-5.4); Lymphocytes % (auto) 8.8 % (10.0-50.0); Mean Corpuscular Hemoglobin 33.5 pg (28.0-32.0); Mean Corpuscular Hgb Conc. 33.4 g/dL (32.0-36.0); Mean Corpuscular Volume 100.5 fL (80.0-100.0); Monocytes # (auto) 1.6 10 ^3/uL (0-1.3); Monocytes % (auto) 11.7 % (0.0-12.0); Neutrophils # (auto) 10.8 10 ^3/uL (1.6-8.6); Neutrophils % (auto) 78.4 % (37.0-80.0); Red Blood Cells 3.01 10^6/uL (4.5-5.90); Red Cell Distribution Width 13.8 % (11.8-14.3); White Blood Cell 13.8 10^3/uL (4.4-10.8)
[2023-03-05] MEDS: CEFTRIAXONE SODIUM 2 GM in D5W 5% 100 ML IV SCH (08:34)
[2023-03-05] MEDS: ENOXAPARIN SOD 40 MG/0.4 ML SYRINGE SC SCH (08:34)
[2023-03-05] MEDS: SODIUM CHLOR 0.9% PF (SALINE LOCK) 10ML VIAL/SYR IV SCH ×2 (08:34→22:00)
[2023-03-05] MEDS: PANTOPRAZOLE 40 MG/10 ML VIAL INJ IV SCH (08:34)
[2023-03-05 08:59] LABS: Alanine Aminotransferase 47 U/L (7-40); Albumin 2.9 g/dL (3.2-4.8); Alkaline Phosphatase 107 U/L (46-116); Anion Gap 7 (5-15); Aspartate Aminotransferase 53 U/L (13-40); Bilirubin, Total 0.4 mg/dL (0.2-1.0); Blood Urea Nitrogen 13 mg/dL (9-23); Calcium 7.7 mg/dL (8.7-10.4); Carbon Dioxide 23 mmol/L (20-30); Chloride 102 mmol/L (98-107); Glucose 100 mg/dL (74-106); Phosphorus 3.6 mg/dL (2.4-5.1); Potassium 4.2 mmol/L (3.5-5.1); Sodium 132 mmol/L (136-145); Total Protein 6.4 g/dL (5.7-8.2)
[2023-03-05] MEDS ORDERED: TPN PER PHARMACY IV NR ×11 (20:00)
[2023-03-06] VITALS (24 sets, daily range): BP systolic 93–116; BP diastolic 58–71; PULSE 105–134; RESP 18–22; TEMP 97.8–99.3; O2SAT 91–100
[2023-03-06] MEDS: ACCU-CHEK COMFORT CURVE STRIP VI SCH ×4 (06:00→18:16)
[2023-03-06] MEDS: InsuLIN REG 1unit/0.01ml Soln (100units/ml) SC SCH ×4 (06:00→18:00)
[2023-03-06 07:30] LABS: Basophils # (auto) 0.1 10 ^3/uL (0-0.2); Basophils % (auto) 0.4 % (0.0-2.0); Eosinophils # (auto) 0.1 10 ^3/uL (0-0.8); Eosinophils % (auto) 0.5 % (0.0-7.0); Hematocrit 27.7 % (41.0-53.0); Hemoglobin 9.2 g/dL (13.5-17.5); Lymphocytes # (auto) 1.1 10 ^3/uL (0.4-5.4); Mean Corpuscular Hemoglobin 33.4 pg (28.0-32.0); Mean Corpuscular Hgb Conc. 33.1 g/dL (32.0-36.0); Mean Corpuscular Volume 100.9 fL (80.0-100.0); Monocytes # (auto) 1.6 10 ^3/uL (0-1.3); Monocytes % (auto) 11.2 % (0.0-12.0); Neutrophils # (auto) 11.4 10 ^3/uL (1.6-8.6); Neutrophils % (auto) 79.9 % (37.0-80.0); Red Blood Cells 2.74 10^6/uL (4.5-5.90); White Blood Cell 14.2 10^3/uL (4.4-10.8)
[2023-03-06 07:52] LABS: Alanine Aminotransferase 45 U/L (7-40); Albumin 2.8 g/dL (3.2-4.8); Alkaline Phosphatase 103 U/L (46-116); Anion Gap 7 (5-15); Aspartate Aminotransferase 36 U/L (13-40); BUN/Creatinine Ratio 30.8 (10.0-20.0); Blood Urea Nitrogen 12 mg/dL (9-23); Calcium 7.7 mg/dL (8.7-10.4); Carbon Dioxide 24 mmol/L (20-30); Chloride 102 mmol/L (98-107); Glucose 121 mg/dL (74-106); Phosphorus 3.2 mg/dL (2.4-5.1); Potassium 4.1 mmol/L (3.5-5.1); Sodium 133 mmol/L (136-145)
[2023-03-06 07:53] LABS: Bilirubin, Total 0.3 mg/dL (0.2-1.0); Total Protein 6.4 g/dL (5.7-8.2)
[2023-03-06] MEDS: PANTOPRAZOLE 40 MG/10 ML VIAL INJ IV SCH (09:37)
[2023-03-06] MEDS: ENOXAPARIN SOD 40 MG/0.4 ML SYRINGE SC SCH (09:37)
[2023-03-06] MEDS: SODIUM CHLOR 0.9% PF (SALINE LOCK) 10ML VIAL/SYR IV SCH ×2 (09:37→22:00)
[2023-03-06] MEDS: CEFTRIAXONE SODIUM 2 GM in D5W 5% 100 ML IV SCH (09:37)
[2023-03-06] MEDS ORDERED: HYDROcodone-ACET 5/325MG TAB PO PRN (10:30)
[2023-03-06] MEDS: FLORASTOR (S. BOULARDII) 250 MG CAP PO SCH (13:13)
[2023-03-06] MEDS ORDERED: TPN PER PHARMACY IV NR ×11 (20:00)
[2023-03-07] VITALS (26 sets, daily range): BP systolic 97–133; BP diastolic 56–75; PULSE 103–140; RESP 18–35; TEMP 97.9–99.3; O2SAT 92–100
[2023-03-07] MEDS: ACCU-CHEK COMFORT CURVE STRIP VI SCH ×5 (06:00→23:06)
[2023-03-07] MEDS: InsuLIN REG 1unit/0.01ml Soln (100units/ml) SC SCH ×5 (06:00→23:06)
[2023-03-07 06:31] LABS: Basophils # (auto) 0.1 10 ^3/uL (0-0.2); Eosinophils % (auto) 0.4 % (0.0-7.0); Monocytes # (auto) 1.6 10 ^3/uL (0-1.3)
[2023-03-07 06:38] LABS: Basophils % (auto) 0.6 % (0.0-2.0); Eosinophils # (auto) 0.1 10 ^3/uL (0-0.8); Hematocrit 23.6 % (41.0-53.0); Lymphocytes # (auto) 0.9 10 ^3/uL (0.4-5.4); Lymphocytes % (auto) 6.7 % (10.0-50.0); Mean Corpuscular Hemoglobin 34.6 pg (28.0-32.0); Mean Corpuscular Volume 101.9 fL (80.0-100.0); Neutrophils # (auto) 11.1 10 ^3/uL (1.6-8.6); Neutrophils % (auto) 80.3 % (37.0-80.0); Red Blood Cells 2.32 10^6/uL (4.5-5.90); Red Cell Distribution Width 13.3 % (11.8-14.3); White Blood Cell 13.8 10^3/uL (4.4-10.8)
[2023-03-07 06:44] LABS: Alanine Aminotransferase 39 U/L (7-40); Albumin 2.2 g/dL (3.2-4.8); Alkaline Phosphatase 87 U/L (46-116); Anion Gap 9 (5-15); Aspartate Aminotransferase 33 U/L (13-40); Blood Urea Nitrogen 8 mg/dL (9-23); Calcium 6.1 mg/dL (8.7-10.4); Carbon Dioxide 18 mmol/L (20-30); Glucose 84 mg/dL (74-106); Magnesium 1.6 mg/dL (1.6-2.6); Phosphorus 2.5 mg/dL (2.4-5.1); Potassium 3.4 mmol/L (3.5-5.1); Sodium 139 mmol/L (136-145)
[2023-03-07 06:45] LABS: Bilirubin, Total 0.2 mg/dL (0.2-1.0); Total Protein 5.1 g/dL (5.7-8.2)
[2023-03-07 06:58] LABS: Chloride 112 mmol/L (98-107)
[2023-03-07 07:17] LABS: Triglycerides 100 mg/dL (< 150)
[2023-03-07] MEDS: PANTOPRAZOLE 40 MG/10 ML VIAL INJ IV SCH (08:00)
[2023-03-07] MEDS: ENOXAPARIN SOD 40 MG/0.4 ML SYRINGE SC SCH (08:00)
[2023-03-07] MEDS: CEFTRIAXONE SODIUM 2 GM in D5W 5% 100 ML IV SCH (08:01)
[2023-03-07] MEDS: FLORASTOR (S. BOULARDII) 250 MG CAP PO SCH (08:01)
[2023-03-07] MEDS: SODIUM CHLOR 0.9% PF (SALINE LOCK) 10ML VIAL/SYR IV SCH ×2 (08:01→22:49)
[2023-03-07] MEDS: POTASSIUM CHL 20MEQ/100ML 100 ML IV SCH ×2 (10:25→11:20)
[2023-03-07] MEDS ORDERED: LOPERAMIDE HCL 2 MG CAP/TAB PO PRN (10:30)
[2023-03-07] MEDS: MAGNESIUM SULFATE 1GM/100ML 100 ML IV SCH ×2 (11:21→12:05)
[2023-03-07] MEDS ORDERED: SODIUM PHOSPHATES 20 MEQ in SODIUM CHL 0.9% 100 ML IV ONE (13:00)
[2023-03-07] MEDS: CALCIUM GLUC 1,000mg/50ml-NS 50 ML IV SCH ×2 (14:25→14:42)
[2023-03-07] MEDS: TPN PER PHARMACY IV NR ×11 (22:52)
[2023-03-08] VITALS (11 sets, daily range): BP systolic 107–118; BP diastolic 62–71; PULSE 115–130; RESP 18–20; TEMP 98.1–99.6; O2SAT 95–99
[2023-03-08] MEDS: ACCU-CHEK COMFORT CURVE STRIP VI SCH ×3 (05:39→18:06)
[2023-03-08] MEDS: InsuLIN REG 1unit/0.01ml Soln (100units/ml) SC SCH ×3 (05:40→18:06)
[2023-03-08 09:12] LABS: Alanine Aminotransferase 50 U/L (7-40); Albumin 3.2 g/dL (3.2-4.8); Alkaline Phosphatase 114 U/L (46-116); Anion Gap 7 (5-15); Aspartate Aminotransferase 37 U/L (13-40); BUN/Creatinine Ratio 18.2 (10.0-20.0); Bilirubin, Total 0.3 mg/dL (0.2-1.0); Blood Urea Nitrogen 10 mg/dL (9-23); Calcium 8.5 mg/dL (8.5-10.1); Carbon Dioxide 27 mmol/L (20-30); Chloride 101 mmol/L (98-107); Glucose 92 mg/dL (74-106); Phosphorus 4.5 mg/dL (2.4-5.1); Potassium 4.5 mmol/L (3.5-5.1); Sodium 135 mmol/L (136-145); Total Protein 7.2 g/dL (5.7-8.2)
[2023-03-08] MEDS: SODIUM CHLOR 0.9% PF (SALINE LOCK) 10ML VIAL/SYR IV SCH ×2 (10:33→21:35)
[2023-03-08] MEDS: FLORASTOR (S. BOULARDII) 250 MG CAP PO SCH (10:33)
[2023-03-08] MEDS: ENOXAPARIN SOD 40 MG/0.4 ML SYRINGE SC SCH (10:33)
[2023-03-08] MEDS: PANTOPRAZOLE 40 MG/10 ML VIAL INJ IV SCH (10:35)
[2023-03-08 12:37] LABS: Magnesium 4.2 mg/dL (1.6-2.6)
[2023-03-08] MEDS ORDERED: FUROSEMIDE 20 MG/2 ML VIAL IV ONE (13:30)
[2023-03-08] MEDS: CEFTRIAXONE SODIUM 2 GM in D5W 5% 100 ML IV SCH (14:16)
[2023-03-08] MEDS: TPN PER PHARMACY IV NR ×11 (19:56)
[2023-03-08] MEDS ORDERED: TPN PER PHARMACY IV NR ×8 (20:00)
[2023-03-09] VITALS (8 sets, daily range): BP systolic 103–124; BP diastolic 60–71; PULSE 82–129; RESP 16–20; TEMP 97.3–99.1; O2SAT 92–99
[2023-03-09] MEDS: ACCU-CHEK COMFORT CURVE STRIP VI SCH ×2 (06:00)
[2023-03-09] MEDS: InsuLIN REG 1unit/0.01ml Soln (100units/ml) SC SCH ×2 (06:00)
[2023-03-09 06:27] LABS: Basophils # (auto) 0 10 ^3/uL (0-0.2); Basophils % (auto) 0.3 % (0.0-2.0); Eosinophils # (auto) 0.1 10 ^3/uL (0-0.8); Eosinophils % (auto) 0.6 % (0.0-7.0); Hemoglobin 9.2 g/dL (13.5-17.5); Lymphocytes # (auto) 1.1 10 ^3/uL (0.4-5.4); Lymphocytes % (auto) 8.2 % (10.0-50.0); Mean Corpuscular Hemoglobin 33.3 pg (28.0-32.0); Monocytes # (auto) 1.5 10 ^3/uL (0-1.3); Neutrophils % (auto) 79.9 % (37.0-80.0); Red Blood Cells 2.77 10^6/uL (4.5-5.90); Red Cell Distribution Width 13.5 % (11.8-14.3); White Blood Cell 13.8 10^3/uL (4.4-10.8)
[2023-03-09 06:39] LABS: Alanine Aminotransferase 41 U/L (7-40); Alkaline Phosphatase 109 U/L (46-116); Anion Gap 7 (5-15); BUN/Creatinine Ratio 23.5 (10.0-20.0); Blood Urea Nitrogen 12 mg/dL (9-23); Calcium 8.2 mg/dL (8.7-10.4); Carbon Dioxide 25 mmol/L (20-30); Chloride 101 mmol/L (98-107); Glucose 120 mg/dL (74-106); Potassium 3.9 mmol/L (3.5-5.1); Sodium 133 mmol/L (136-145)
[2023-03-09 06:40] LABS: Albumin 3.1 g/dL (3.2-4.8); Aspartate Aminotransferase 25 U/L (13-40); Bilirubin, Total 0.2 mg/dL (0.2-1.0); Phosphorus 3.3 mg/dL (2.4-5.1); Total Protein 6.9 g/dL (5.7-8.2)
[2023-03-09 06:42] LABS: Magnesium 1.6 mg/dL (1.6-2.6)
[2023-03-09 06:52] LABS: Triglycerides 116 mg/dL (< 150)
[2023-03-09] MEDS: PANTOPRAZOLE 40 MG/10 ML VIAL INJ IV SCH (10:38)
[2023-03-09] MEDS: ENOXAPARIN SOD 40 MG/0.4 ML SYRINGE SC SCH (10:38)
[2023-03-09] MEDS: FLORASTOR (S. BOULARDII) 250 MG CAP PO SCH (10:38)
[2023-03-09] MEDS: CEFTRIAXONE SODIUM 2 GM in D5W 5% 100 ML IV SCH (10:38)
[2023-03-09] MEDS: SODIUM CHLOR 0.9% PF (SALINE LOCK) 10ML VIAL/SYR IV SCH ×2 (10:39→21:33)
[2023-03-10] VITALS (8 sets, daily range): BP systolic 105–113; BP diastolic 65–73; PULSE 99–137; RESP 14–18; TEMP 97.3–98.6; O2SAT 4–99
[2023-03-10] MEDS ORDERED: SODIUM CHLORIDE 0.9% 1,000 ML IV SCH (09:00)
[2023-03-10] MEDS: PANTOPRAZOLE 40 MG/10 ML VIAL INJ IV SCH (09:53)
[2023-03-10] MEDS: FLORASTOR (S. BOULARDII) 250 MG CAP PO SCH (09:53)
[2023-03-10] MEDS: CEFTRIAXONE SODIUM 2 GM in D5W 5% 100 ML IV SCH (09:53)
[2023-03-10] MEDS: SODIUM CHLOR 0.9% PF (SALINE LOCK) 10ML VIAL/SYR IV SCH ×2 (09:53→21:41)
[2023-03-10] MEDS: ENOXAPARIN SOD 40 MG/0.4 ML SYRINGE SC SCH (10:06)
[2023-03-11] VITALS (8 sets, daily range): BP systolic 90–113; BP diastolic 54–93; PULSE 114–137; RESP 16–18; TEMP 98.2–98.8; O2SAT 93–100
[2023-03-11 06:30] LABS: Alanine Aminotransferase 26 U/L (7-40); Albumin 3.2 g/dL (3.2-4.8); Alkaline Phosphatase 124 U/L (46-116); Anion Gap 8 (5-15); Aspartate Aminotransferase 17 U/L (13-40); BUN/Creatinine Ratio 14.5 (10.0-20.0); Bilirubin, Total 0.2 mg/dL (0.2-1.0); Blood Urea Nitrogen 8 mg/dL (9-23); Calcium 8.4 mg/dL (8.7-10.4); Carbon Dioxide 23 mmol/L (20-30); Chloride 102 mmol/L (98-107); Glucose 92 mg/dL (74-106); Potassium 3.4 mmol/L (3.5-5.1); Sodium 133 mmol/L (136-145); Total Protein 7.2 g/dL (5.7-8.2)
[2023-03-11 06:35] LABS: Basophils # (auto) 0.1 10 ^3/uL (0-0.2); Mean Corpuscular Volume 102.6 fL (80.0-100.0)
[2023-03-11 06:38] LABS: Basophils % (auto) 0.5 % (0.0-2.0); Eosinophils # (auto) 0.1 10 ^3/uL (0-0.8); Eosinophils % (auto) 0.9 % (0.0-7.0); Hematocrit 28.3 % (41.0-53.0); Hemoglobin 9.3 g/dL (13.5-17.5); Lymphocytes # (auto) 1.5 10 ^3/uL (0.4-5.4); Lymphocytes % (auto) 9.3 % (10.0-50.0); Mean Corpuscular Hemoglobin 33.6 pg (28.0-32.0); Mean Corpuscular Hgb Conc. 32.8 g/dL (32.0-36.0); Monocytes # (auto) 1.5 10 ^3/uL (0-1.3); Monocytes % (auto) 9.3 % (0.0-12.0); Neutrophils # (auto) 12.7 10 ^3/uL (1.6-8.6); Nucleated Red Blood Cells % 0.2 %; Red Blood Cells 2.76 10^6/uL (4.5-5.90); Red Cell Distribution Width 13.7 % (11.8-14.3); White Blood Cell 15.9 10^3/uL (4.4-10.8)
[2023-03-11] MEDS: SODIUM CHLOR 0.9% PF (SALINE LOCK) 10ML VIAL/SYR IV SCH ×2 (10:02→22:00)
[2023-03-11] MEDS: FLORASTOR (S. BOULARDII) 250 MG CAP PO SCH (10:02)
[2023-03-11] MEDS: ENOXAPARIN SOD 40 MG/0.4 ML SYRINGE SC SCH (10:03)
[2023-03-11] MEDS: PANTOPRAZOLE 40 MG/10 ML VIAL INJ IV SCH (10:03)
[2023-03-11] MEDS: CEFTRIAXONE SODIUM 2 GM in D5W 5% 100 ML IV SCH (10:18)
[2023-03-11] MEDS ORDERED: levoFLOXacin 500MG 100 ML IV ONE (10:45)
[2023-03-11] MEDS ORDERED: IOHEXOL 300 MG/ML 100ML BOTTLE IJ ONE (12:15)
[2023-03-11] MEDS: SODIUM CHLORIDE 0.9% 1,000 ML IV SCH ×2 (13:59→20:45)
[2023-03-11] MEDS: CLINDAMYCIN 600MG IV 50 ML IV SCH ×2 (14:00→21:13)
[2023-03-12] VITALS (7 sets, daily range): BP systolic 92–112; BP diastolic 58–68; PULSE 119–134; RESP 16–19; TEMP 98.5–100; O2SAT 94–96
[2023-03-12] MEDS: CLINDAMYCIN 600MG IV 50 ML IV SCH ×3 (06:07→21:20)
[2023-03-12 06:40] LABS: Basophils # (auto) 0.1 10 ^3/uL (0-0.2); Basophils % (auto) 0.4 % (0.0-2.0); Eosinophils # (auto) 0.1 10 ^3/uL (0-0.8); Eosinophils % (auto) 0.9 % (0.0-7.0); Hematocrit 25.1 % (41.0-53.0); Hemoglobin 8.4 g/dL (13.5-17.5); Lymphocytes # (auto) 1.2 10 ^3/uL (0.4-5.4); Lymphocytes % (auto) 8.5 % (10.0-50.0); Mean Corpuscular Hemoglobin 33.2 pg (28.0-32.0); Mean Corpuscular Hgb Conc. 33.3 g/dL (32.0-36.0); Mean Corpuscular Volume 99.7 fL (80.0-100.0); Monocytes % (auto) 7.2 % (0.0-12.0); Neutrophils # (auto) 11.9 10 ^3/uL (1.6-8.6); Red Blood Cells 2.52 10^6/uL (4.5-5.90); Red Cell Distribution Width 13.4 % (11.8-14.3); White Blood Cell 14.3 10^3/uL (4.4-10.8)
[2023-03-12 07:09] LABS: Alanine Aminotransferase 16 U/L (7-40); Albumin 2.9 g/dL (3.2-4.8); Alkaline Phosphatase 102 U/L (46-116); Amylase 24 U/L (30-118); Anion Gap 8 (5-15); Aspartate Aminotransferase 15 U/L (13-40); BUN/Creatinine Ratio 10.9 (10.0-20.0); Blood Urea Nitrogen 6 mg/dL (9-23); Calcium 7.9 mg/dL (8.7-10.4); Carbon Dioxide 23 mmol/L (20-30); Chloride 103 mmol/L (98-107); Glucose 98 mg/dL (74-106); Lipase 25 U/L (12-53); Potassium 3.5 mmol/L (3.5-5.1); Sodium 134 mmol/L (136-145)
[2023-03-12 07:10] LABS: Bilirubin, Total 0.2 mg/dL (0.2-1.0); Total Protein 6.7 g/dL (5.7-8.2)
[2023-03-12] MEDS: ENOXAPARIN SOD 40 MG/0.4 ML SYRINGE SC SCH (09:38)
[2023-03-12] MEDS: SODIUM CHLOR 0.9% PF (SALINE LOCK) 10ML VIAL/SYR IV SCH ×2 (09:38→21:20)
[2023-03-12] MEDS: levoFLOXacin 500MG 100 ML IV SCH (09:38)
[2023-03-12] MEDS: SODIUM CHLORIDE 0.9% 1,000 ML IV SCH ×2 (09:38→21:20)
[2023-03-12] MEDS: PANTOPRAZOLE 40 MG/10 ML VIAL INJ IV SCH (09:38)
[2023-03-12] MEDS: FLORASTOR (S. BOULARDII) 250 MG CAP PO SCH (09:39)
[2023-03-12 11:53] LABS: Hemoglobin 7.4 g/dL (13.5-17.5)
[2023-03-12 11:55] LABS: Hematocrit 22.6 % (41.0-53.0)
[2023-03-12 17:06] LABS: Hemoglobin 8.4 g/dL (13.5-17.5)
[2023-03-12 17:08] LABS: Hematocrit 25.6 % (41.0-53.0)
[2023-03-12 23:06] LABS: Hemoglobin 8.2 g/dL (13.5-17.5)
[2023-03-12 23:09] LABS: Hematocrit 24.7 % (41.0-53.0)
[2023-03-13] VITALS (12 sets, daily range): BP systolic 98–122; BP diastolic 65–82; PULSE 117–126; RESP 17–28; TEMP 98.3–100.4; O2SAT 92–96
[2023-03-13 00:34] LABS: Urine Epithelial Cast None Seen /hpf (<5)
[2023-03-13 00:45] LABS: Urine Bacteria NONE SEEN /hpf (None Seen); Urine Blood Negative /uL (Negative); Urine Clarity Clear (Clear); Urine Color Yellow (Yellow); Urine Mucus FEW (None Seen); Urine Protein, UAD 1+ (Negative); Urine Specific Gravity 1.016 (1.001-1.035); Urine Urobilinogen Normal (Negative); Urine WBC 3 /hpf (0 - 3)
[2023-03-13] MEDS: CLINDAMYCIN 600MG IV 50 ML IV SCH (05:27)
[2023-03-13] MEDS: SODIUM CHLORIDE 0.9% 1,000 ML IV SCH ×2 (05:45→07:37)
[2023-03-13 05:59] LABS: Basophils # (auto) 0 10 ^3/uL (0-0.2); Eosinophils # (auto) 0.1 10 ^3/uL (0-0.8); Hemoglobin 8.2 g/dL (13.5-17.5); Monocytes # (auto) 1.2 10 ^3/uL (0-1.3)
[2023-03-13 06:03] LABS: Basophils % (auto) 0.3 % (0.0-2.0); Eosinophils % (auto) 0.6 % (0.0-7.0); Hematocrit 25.3 % (41.0-53.0); Lymphocytes # (auto) 1.1 10 ^3/uL (0.4-5.4); Lymphocytes % (auto) 6.6 % (10.0-50.0); Mean Corpuscular Hgb Conc. 32.6 g/dL (32.0-36.0); Mean Corpuscular Volume 101.3 fL (80.0-100.0); Monocytes % (auto) 7.8 % (0.0-12.0); Neutrophils # (auto) 13.4 10 ^3/uL (1.6-8.6); Neutrophils % (auto) 84.7 % (37.0-80.0); Nucleated Red Blood Cells % 0.1 %; Red Cell Distribution Width 13.7 % (11.8-14.3); White Blood Cell 15.9 10^3/uL (4.4-10.8)
[2023-03-13 06:25] LABS: Alanine Aminotransferase 10 U/L (7-40); Albumin 2.9 g/dL (3.2-4.8); Alkaline Phosphatase 84 U/L (46-116); Anion Gap 7 (5-15); Aspartate Aminotransferase 11 U/L (13-40); Calcium 7.9 mg/dL (8.7-10.4); Carbon Dioxide 22 mmol/L (20-30); Chloride 106 mmol/L (98-107); Glucose 113 mg/dL (74-106); Potassium 3.4 mmol/L (3.5-5.1); Sodium 135 mmol/L (136-145)
[2023-03-13 06:26] LABS: Bilirubin, Total 0.2 mg/dL (0.2-1.0); Total Protein 6.5 g/dL (5.7-8.2)
[2023-03-13 06:27] LABS: BUN/Creatinine Ratio 8.8 (10.0-20.0); Blood Urea Nitrogen < 5 mg/dL (9-23)
[2023-03-13] MEDS: PANTOPRAZOLE 40 MG/10 ML VIAL INJ IV SCH (09:41)
[2023-03-13] MEDS: levoFLOXacin 500MG 100 ML IV SCH (09:41)
[2023-03-13] MEDS: FLORASTOR (S. BOULARDII) 250 MG CAP PO SCH (09:42)
[2023-03-13] MEDS: SODIUM CHLOR 0.9% PF (SALINE LOCK) 10ML VIAL/SYR IV SCH ×2 (09:42→22:00)
[2023-03-13] MEDS: ENOXAPARIN SOD 40 MG/0.4 ML SYRINGE SC SCH (09:52)
[2023-03-13] MEDS ORDERED: VANCOMYCIN PER PHARMACY 0 MG IV SCH (11:00)
[2023-03-13] MEDS ORDERED: CATHFLO ACTIVASE (ALTEPLASE) 2 MG VIAL IV ONE (11:30)
[2023-03-13] MEDS ORDERED: MEROPENEM 1GM IVPB 100 ML IV SCH (14:00)
[2023-03-13] MEDS: CEFEPIME 2GM/50ML NS 50 ML IV SCH ×2 (14:40→23:25)
[2023-03-13] MEDS: SOD CHL 0.9%/ KCL 20MEQ 1,000 ML IV SCH (15:55)
[2023-03-13] MEDS ORDERED: LIDOCAINE 2%HCL (LOCAL ANESTH.) INJ 20ML MDV ONE (16:27)
[2023-03-13] MEDS ORDERED: fentaNYL CITRATE 100 MCG/2 ML VL ONE (16:58)
[2023-03-13] MEDS ORDERED: MIDAZOLAM HCL 2MG/2ML 2ml VIAL (1mg/ml) ONE (16:58)
[2023-03-13] MEDS ORDERED: IOHEXOL 350 MG/ML 100ML IJ ONE (17:22)
[2023-03-13] MEDS ORDERED: VANCOMYCIN 1GM/200ML 200 ML IV ONE (17:30)
[2023-03-13] MEDS: METOPROLOL TARTRATE 25 MG TAB PO SCH (23:25)
[2023-03-13] MEDS: ACETAMINOPHEN 500 MG TAB PO PRN (23:41)
[2023-03-14] VITALS (24 sets, daily range): BP systolic 93–125; BP diastolic 44–79; PULSE 87–127; RESP 14–29; TEMP 98.2–101.1; O2SAT 92–100
[2023-03-14] MEDS: SOD CHL 0.9%/ KCL 20MEQ 1,000 ML IV SCH ×3 (02:20→17:27)
[2023-03-14] MEDS: VANCOMYCIN 1GM/200ML 200 ML IV SCH ×4 (06:00→19:53)
[2023-03-14] MEDS: CEFEPIME 2GM/50ML NS 50 ML IV SCH ×3 (07:15→22:00)
[2023-03-14 08:06] LABS: Basophils # (auto) 0.2 10 ^3/uL (0-0.2); Eosinophils # (auto) 0.2 10 ^3/uL (0-0.8); Eosinophils % (auto) 1.1 % (0.0-7.0); Lymphocytes # (auto) 0.8 10 ^3/uL (0.4-5.4); Mean Corpuscular Hgb Conc. 33.1 g/dL (32.0-36.0); Neutrophils # (auto) 11.7 10 ^3/uL (1.6-8.6)
[2023-03-14 08:07] LABS: Basophils % (auto) 1.3 % (0.0-2.0); Hematocrit 24.9 % (41.0-53.0); Hemoglobin 8.3 g/dL (13.5-17.5); Lymphocytes % (auto) 5.8 % (10.0-50.0); Mean Corpuscular Hemoglobin 33.1 pg (28.0-32.0); Mean Corpuscular Volume 99.8 fL (80.0-100.0); Monocytes # (auto) 1.1 10 ^3/uL (0-1.3); Monocytes % (auto) 7.7 % (0.0-12.0); Neutrophils % (auto) 84.1 % (37.0-80.0); Nucleated Red Blood Cells % 0.1 %; Red Cell Distribution Width 13.6 % (11.8-14.3); White Blood Cell 13.9 10^3/uL (4.4-10.8)
[2023-03-14 08:19] LABS: Chloride 108 mmol/L (98-107); Sodium 137 mmol/L (136-145)
[2023-03-14 08:20] LABS: Anion Gap 6 (5-15); Carbon Dioxide 23 mmol/L (20-30)
[2023-03-14 08:25] LABS: Glucose 93 mg/dL (74-106)
[2023-03-14 08:28] LABS: BUN/Creatinine Ratio 11.9 (10.0-20.0); Blood Urea Nitrogen < 5 mg/dL (9-23)
[2023-03-14] MEDS: FLORASTOR (S. BOULARDII) 250 MG CAP PO SCH (10:32)
[2023-03-14] MEDS: PANTOPRAZOLE 40 MG/10 ML VIAL INJ IV SCH (10:32)
[2023-03-14] MEDS: ENOXAPARIN SOD 40 MG/0.4 ML SYRINGE SC SCH (10:32)
[2023-03-14] MEDS: SODIUM CHLOR 0.9% PF (SALINE LOCK) 10ML VIAL/SYR IV SCH ×2 (10:32→22:00)
[2023-03-14] MEDS: METOPROLOL TARTRATE 25 MG TAB PO SCH ×2 (10:33→22:00)
[2023-03-14] MEDS ORDERED: TEMAZEPAM 15 MG CAP PO PRN (23:00)
[2023-03-15] VITALS (33 sets, daily range): BP systolic 98–125; BP diastolic 62–81; PULSE 88–124; RESP 15–26; TEMP 98–101.1; O2SAT 91–100
[2023-03-15] MEDS: ACETAMINOPHEN 500 MG TAB PO PRN (01:02)
[2023-03-15] MEDS: SOD CHL 0.9%/ KCL 20MEQ 1,000 ML IV SCH ×3 (03:14→23:47)
[2023-03-15] MEDS: VANCOMYCIN 1GM/200ML 200 ML IV SCH ×3 (04:13→20:05)
[2023-03-15 04:48] LABS: Eosinophils # (auto) 0.2 10 ^3/uL (0-0.8); Lymphocytes # (auto) 1.2 10 ^3/uL (0.4-5.4); Red Cell Distribution Width 13.5 % (11.8-14.3); White Blood Cell 13.8 10^3/uL (4.4-10.8)
[2023-03-15 04:52] LABS: Basophils # (auto) 0.1 10 ^3/uL (0-0.2); Basophils % (auto) 0.5 % (0.0-2.0); Eosinophils % (auto) 1.4 % (0.0-7.0); Hematocrit 20.9 % (41.0-53.0); Lymphocytes % (auto) 8.7 % (10.0-50.0); Mean Corpuscular Hemoglobin 32.8 pg (28.0-32.0); Mean Corpuscular Hgb Conc. 33.2 g/dL (32.0-36.0); Mean Corpuscular Volume 98.7 fL (80.0-100.0); Monocytes # (auto) 1.2 10 ^3/uL (0-1.3); Monocytes % (auto) 8.3 % (0.0-12.0); Neutrophils # (auto) 11.2 10 ^3/uL (1.6-8.6); Neutrophils % (auto) 81.1 % (37.0-80.0); Red Blood Cells 2.11 10^6/uL (4.5-5.90)
[2023-03-15 05:18] LABS: Albumin 2.9 g/dL (3.2-4.8); Alkaline Phosphatase 78 U/L (46-116); Anion Gap 9 (5-15); Aspartate Aminotransferase 10 U/L (13-40); Bilirubin, Total 0.3 mg/dL (0.2-1.0); Calcium 8.1 mg/dL (8.5-10.1); Carbon Dioxide 22 mmol/L (20-30); Chloride 106 mmol/L (98-107); Glucose 93 mg/dL (74-106); Potassium 3.6 mmol/L (3.5-5.1); Sodium 137 mmol/L (136-145); Total Protein 6.3 g/dL (5.7-8.2)
[2023-03-15 05:26] LABS: Alanine Aminotransferase 9 U/L (7-40); BUN/Creatinine Ratio 9.8 (10.0-20.0); Blood Urea Nitrogen < 5 mg/dL (9-23)
[2023-03-15 05:31] LABS: Hemoglobin 6.9 g/dL (13.5-17.5)
[2023-03-15] MEDS: CEFEPIME 2GM/50ML NS 50 ML IV SCH ×4 (06:18→22:35)
[2023-03-15] MEDS: PANTOPRAZOLE 40 MG/10 ML VIAL INJ IV SCH (09:02)
[2023-03-15] MEDS: FLORASTOR (S. BOULARDII) 250 MG CAP PO SCH (09:03)
[2023-03-15] MEDS: ENOXAPARIN SOD 40 MG/0.4 ML SYRINGE SC SCH (09:03)
[2023-03-15] MEDS: METOPROLOL TARTRATE 25 MG TAB PO SCH ×2 (09:05→21:33)
[2023-03-15] MEDS: SODIUM CHLOR 0.9% PF (SALINE LOCK) 10ML VIAL/SYR IV SCH ×2 (09:06→21:33)
[2023-03-15] MEDS ORDERED: IOHEXOL 300 MG/ML 100ML BOTTLE IJ ONE (13:11)
[2023-03-16] VITALS (39 sets, daily range): BP systolic 104–122; BP diastolic 67–86; PULSE 91–119; RESP 14–33; TEMP 98.5–99.5; O2SAT 92–99
[2023-03-16] MEDS: VANCOMYCIN 1GM/200ML 200 ML IV SCH ×4 (03:50→21:20)
[2023-03-16 05:00] LABS: Basophils # (auto) 0.1 10 ^3/uL (0-0.2); Basophils % (auto) 0.4 % (0.0-2.0); Eosinophils # (auto) 0.2 10 ^3/uL (0-0.8); Eosinophils % (auto) 1.8 % (0.0-7.0); Hematocrit 26.7 % (41.0-53.0); Hemoglobin 8.9 g/dL (13.5-17.5); Lymphocytes % (auto) 8.3 % (10.0-50.0); Mean Corpuscular Hemoglobin 32.8 pg (28.0-32.0); Mean Corpuscular Hgb Conc. 33.3 g/dL (32.0-36.0); Mean Corpuscular Volume 98.4 fL (80.0-100.0); Monocytes % (auto) 8.4 % (0.0-12.0); Neutrophils % (auto) 81.1 % (37.0-80.0); Red Blood Cells 2.72 10^6/uL (4.5-5.90); Red Cell Distribution Width 13.6 % (11.8-14.3); White Blood Cell 12.4 10^3/uL (4.4-10.8)
[2023-03-16 05:34] LABS: Alkaline Phosphatase 72 U/L (46-116); Anion Gap 9 (5-15); Carbon Dioxide 20 mmol/L (20-30); Chloride 105 mmol/L (98-107); Glucose 95 mg/dL (74-106); Potassium 3.8 mmol/L (3.5-5.1); Sodium 134 mmol/L (136-145)
[2023-03-16 05:36] LABS: Albumin 2.9 g/dL (3.2-4.8); Aspartate Aminotransferase 11 U/L (13-40); Bilirubin, Total 0.4 mg/dL (0.2-1.0); Total Protein 6.4 g/dL (5.7-8.2)
[2023-03-16 05:44] LABS: Alanine Aminotransferase < 9 U/L (7-40); BUN/Creatinine Ratio 10.9 (10.0-20.0); Blood Urea Nitrogen < 5 mg/dL (9-23)
[2023-03-16] MEDS: CEFEPIME 2GM/50ML NS 50 ML IV SCH ×3 (06:24→22:32)
[2023-03-16] MEDS: ENOXAPARIN SOD 40 MG/0.4 ML SYRINGE SC SCH (09:20)
[2023-03-16] MEDS: PANTOPRAZOLE 40 MG/10 ML VIAL INJ IV SCH (09:20)
[2023-03-16] MEDS: SOD CHL 0.9%/ KCL 20MEQ 1,000 ML IV SCH ×2 (09:21→19:22)
[2023-03-16] MEDS: FLORASTOR (S. BOULARDII) 250 MG CAP PO SCH (09:21)
[2023-03-16] MEDS: METOPROLOL TARTRATE 25 MG TAB PO SCH ×2 (09:22→21:20)
[2023-03-16] MEDS: SODIUM CHLOR 0.9% PF (SALINE LOCK) 10ML VIAL/SYR IV SCH ×2 (10:36→21:21)
[2023-03-16] MEDS: ACETAMINOPHEN 500 MG TAB PO PRN (17:30)
[2023-03-17] VITALS (24 sets, daily range): BP systolic 92–120; BP diastolic 53–83; PULSE 90–136; RESP 12–28; TEMP 98.6–99.8; O2SAT 90–98
[2023-03-17 04:04] LABS: Basophils # (auto) 0.1 10 ^3/uL (0-0.2); Basophils % (auto) 0.5 % (0.0-2.0); Eosinophils # (auto) 0.2 10 ^3/uL (0-0.8); Eosinophils % (auto) 1.8 % (0.0-7.0); Hematocrit 28.5 % (41.0-53.0); Hemoglobin 9.5 g/dL (13.5-17.5); Lymphocytes # (auto) 0.8 10 ^3/uL (0.4-5.4); Lymphocytes % (auto) 7.7 % (10.0-50.0); Mean Corpuscular Hemoglobin 32.6 pg (28.0-32.0); Mean Corpuscular Hgb Conc. 33.5 g/dL (32.0-36.0); Mean Corpuscular Volume 97.2 fL (80.0-100.0); Monocytes % (auto) 9.1 % (0.0-12.0); Neutrophils # (auto) 8.9 10 ^3/uL (1.6-8.6); Neutrophils % (auto) 80.9 % (37.0-80.0); Red Blood Cells 2.93 10^6/uL (4.5-5.90); Red Cell Distribution Width 13.7 % (11.8-14.3)
[2023-03-17 04:19] LABS: Anion Gap 9 (5-15); Carbon Dioxide 21 mmol/L (20-30); Chloride 107 mmol/L (98-107); Sodium 137 mmol/L (136-145)
[2023-03-17 04:20] LABS: Calcium 8.3 mg/dL (8.7-10.4)
[2023-03-17 04:26] LABS: Glucose 94 mg/dL (74-106)
[2023-03-17 04:35] LABS: BUN/Creatinine Ratio 10.9 (10.0-20.0); Blood Urea Nitrogen < 5 mg/dL (9-23)
[2023-03-17] MEDS: VANCOMYCIN 1GM/200ML 200 ML IV SCH (04:49)
[2023-03-17] MEDS: SOD CHL 0.9%/ KCL 20MEQ 1,000 ML IV SCH ×2 (04:51→15:00)
[2023-03-17] MEDS: CEFEPIME 2GM/50ML NS 50 ML IV SCH (05:02)
[2023-03-17] MEDS: PANTOPRAZOLE 40 MG/10 ML VIAL INJ IV SCH (08:58)
[2023-03-17] MEDS: ENOXAPARIN SOD 40 MG/0.4 ML SYRINGE SC SCH (08:59)
[2023-03-17] MEDS: FLORASTOR (S. BOULARDII) 250 MG CAP PO SCH (08:59)
[2023-03-17] MEDS: METOPROLOL TARTRATE 25 MG TAB PO SCH ×2 (08:59→21:21)
[2023-03-17] MEDS: SODIUM CHLOR 0.9% PF (SALINE LOCK) 10ML VIAL/SYR IV SCH ×2 (08:59→21:23)
[2023-03-17] MEDS ORDERED: CEFTRIAXONE SODIUM 2 GM in D5W 5% 100 ML IV ONE (12:30)
[2023-03-18] VITALS (22 sets, daily range): BP systolic 87–120; BP diastolic 46–77; PULSE 100–126; RESP 16–46; TEMP 98.7–100.3; O2SAT 90–98
[2023-03-18] MEDS: SOD CHL 0.9%/ KCL 20MEQ 1,000 ML IV SCH ×3 (00:17→21:19)
[2023-03-18 05:18] LABS: Basophils # (auto) 0 10 ^3/uL (0-0.2); Basophils % (auto) 0.4 % (0.0-2.0); Eosinophils # (auto) 0.3 10 ^3/uL (0-0.8); Eosinophils % (auto) 2.8 % (0.0-7.0); Hematocrit 27.3 % (41.0-53.0); Hemoglobin 9.2 g/dL (13.5-17.5); Lymphocytes # (auto) 1.1 10 ^3/uL (0.4-5.4); Lymphocytes % (auto) 10.1 % (10.0-50.0); Mean Corpuscular Hgb Conc. 33.5 g/dL (32.0-36.0); Mean Corpuscular Volume 98.7 fL (80.0-100.0); Monocytes # (auto) 0.9 10 ^3/uL (0-1.3); Monocytes % (auto) 8.9 % (0.0-12.0); Neutrophils # (auto) 8.2 10 ^3/uL (1.6-8.6); Neutrophils % (auto) 77.8 % (37.0-80.0); Red Blood Cells 2.77 10^6/uL (4.5-5.90); Red Cell Distribution Width 13.7 % (11.8-14.3); White Blood Cell 10.6 10^3/uL (4.4-10.8)
[2023-03-18 06:11] LABS: Anion Gap 8 (5-15); Calcium 7.5 mg/dL (8.7-10.4); Carbon Dioxide 23 mmol/L (20-30); Chloride 106 mmol/L (98-107); Potassium 3.7 mmol/L (3.5-5.1); Sodium 137 mmol/L (136-145)
[2023-03-18 06:17] LABS: Glucose 97 mg/dL (74-106)
[2023-03-18 06:31] LABS: BUN/Creatinine Ratio 10.6 (10.0-20.0); Blood Urea Nitrogen < 5 mg/dL (9-23)
[2023-03-18] MEDS: SODIUM CHLOR 0.9% PF (SALINE LOCK) 10ML VIAL/SYR IV SCH ×2 (07:59→21:20)
[2023-03-18] MEDS: ENOXAPARIN SOD 40 MG/0.4 ML SYRINGE SC SCH (07:59)
[2023-03-18] MEDS: CEFTRIAXONE SODIUM 2 GM in D5W 5% 100 ML IV SCH (07:59)
[2023-03-18] MEDS: FLORASTOR (S. BOULARDII) 250 MG CAP PO SCH (07:59)
[2023-03-18] MEDS: PANTOPRAZOLE 40 MG/10 ML VIAL INJ IV SCH (08:00)
[2023-03-18] MEDS: METOPROLOL TARTRATE 25 MG TAB PO SCH ×2 (08:00→21:07)
[2023-03-18] MEDS: ACETAMINOPHEN 500 MG TAB PO PRN (16:19)
[2023-03-19] VITALS (27 sets, daily range): BP systolic 107–125; BP diastolic 67–86; PULSE 92–123; RESP 19–39; TEMP 98.8–101; O2SAT 91–99
[2023-03-19 06:37] LABS: Basophils # (auto) 0 10 ^3/uL (0-0.2); Basophils % (auto) 0.2 % (0.0-2.0); Eosinophils # (auto) 0.2 10 ^3/uL (0-0.8); Eosinophils % (auto) 2.6 % (0.0-7.0); Hematocrit 26.7 % (41.0-53.0); Hemoglobin 9.1 g/dL (13.5-17.5); Lymphocytes # (auto) 0.9 10 ^3/uL (0.4-5.4); Lymphocytes % (auto) 10.5 % (10.0-50.0); Mean Corpuscular Hemoglobin 33.3 pg (28.0-32.0); Mean Corpuscular Volume 97.9 fL (80.0-100.0); Monocytes # (auto) 0.8 10 ^3/uL (0-1.3); Monocytes % (auto) 9.5 % (0.0-12.0); Neutrophils # (auto) 6.6 10 ^3/uL (1.6-8.6); Neutrophils % (auto) 77.2 % (37.0-80.0); Red Blood Cells 2.72 10^6/uL (4.5-5.90); Red Cell Distribution Width 13.8 % (11.8-14.3); White Blood Cell 8.5 10^3/uL (4.4-10.8)
[2023-03-19 06:49] LABS: Chloride 107 mmol/L (98-107); Potassium 3.7 mmol/L (3.5-5.1); Sodium 138 mmol/L (136-145)
[2023-03-19 06:50] LABS: Anion Gap 5 (5-15); Calcium 7.7 mg/dL (8.7-10.4); Carbon Dioxide 26 mmol/L (20-30)
[2023-03-19 06:55] LABS: Glucose 100 mg/dL (74-106)
[2023-03-19 06:58] LABS: BUN/Creatinine Ratio 10.6 (10.0-20.0); Blood Urea Nitrogen < 5 mg/dL (9-23)
[2023-03-19] MEDS: SOD CHL 0.9%/ KCL 20MEQ 1,000 ML IV SCH ×2 (07:00→16:18)
[2023-03-19] MEDS: CEFTRIAXONE SODIUM 2 GM in D5W 5% 100 ML IV SCH (07:50)
[2023-03-19] MEDS: FLORASTOR (S. BOULARDII) 250 MG CAP PO SCH (07:50)
[2023-03-19] MEDS: PANTOPRAZOLE 40 MG/10 ML VIAL INJ IV SCH (07:50)
[2023-03-19] MEDS: ENOXAPARIN SOD 40 MG/0.4 ML SYRINGE SC SCH ×3 (07:50→10:00)
[2023-03-19] MEDS: METOPROLOL TARTRATE 25 MG TAB PO SCH ×2 (07:51→20:33)
[2023-03-19] MEDS: SODIUM CHLOR 0.9% PF (SALINE LOCK) 10ML VIAL/SYR IV SCH ×2 (07:51→20:33)
[2023-03-19] MEDS: ACETAMINOPHEN 500 MG TAB PO PRN (20:32)
[2023-03-20] VITALS (24 sets, daily range): BP systolic 101–132; BP diastolic 68–88; PULSE 92–117; RESP 14–26; TEMP 99–101.5; O2SAT 92–100
[2023-03-20] MEDS: SOD CHL 0.9%/ KCL 20MEQ 1,000 ML IV SCH ×3 (02:16→21:22)
[2023-03-20] MEDS: PANTOPRAZOLE 40 MG/10 ML VIAL INJ IV SCH (10:38)
[2023-03-20] MEDS: ENOXAPARIN SOD 40 MG/0.4 ML SYRINGE SC SCH (10:39)
[2023-03-20] MEDS: FLORASTOR (S. BOULARDII) 250 MG CAP PO SCH (10:45)
[2023-03-20] MEDS: CEFTRIAXONE SODIUM 2 GM in D5W 5% 100 ML IV SCH (10:45)
[2023-03-20] MEDS: METOPROLOL TARTRATE 25 MG TAB PO SCH ×2 (10:45→21:22)
[2023-03-20] MEDS: SODIUM CHLOR 0.9% PF (SALINE LOCK) 10ML VIAL/SYR IV SCH ×2 (10:46→21:19)
[2023-03-20] MEDS: ENSURE CLEAR Apple 8oz Carton PO SCH ×3 (12:36→21:20)
[2023-03-20] MEDS: ACETAMINOPHEN 500 MG TAB PO PRN (19:47)
[2023-03-21] VITALS (25 sets, daily range): BP systolic 99–130; BP diastolic 61–83; PULSE 96–131; RESP 17–25; TEMP 98.9–100.4; O2SAT 91–99
[2023-03-21 05:18] LABS: Basophils # (auto) 0 10 ^3/uL (0-0.2); Basophils % (auto) 0.2 % (0.0-2.0); Eosinophils # (auto) 0.1 10 ^3/uL (0-0.8); Eosinophils % (auto) 1.4 % (0.0-7.0); Hematocrit 28.5 % (41.0-53.0); Hemoglobin 9.6 g/dL (13.5-17.5); Lymphocytes # (auto) 0.9 10 ^3/uL (0.4-5.4); Lymphocytes % (auto) 9.5 % (10.0-50.0); Mean Corpuscular Hemoglobin 33.2 pg (28.0-32.0); Mean Corpuscular Hgb Conc. 33.8 g/dL (32.0-36.0); Monocytes # (auto) 0.9 10 ^3/uL (0-1.3); Monocytes % (auto) 8.7 % (0.0-12.0); Neutrophils # (auto) 7.9 10 ^3/uL (1.6-8.6); Neutrophils % (auto) 80.2 % (37.0-80.0); Red Blood Cells 2.91 10^6/uL (4.5-5.90); Red Cell Distribution Width 13.8 % (11.8-14.3); White Blood Cell 9.9 10^3/uL (4.4-10.8)
[2023-03-21 05:36] LABS: Alkaline Phosphatase 68 U/L (46-116); Anion Gap 6 (5-15); Aspartate Aminotransferase < 8 U/L (13-40); Bilirubin, Total 0.3 mg/dL (0.2-1.0); Calcium 7.7 mg/dL (8.7-10.4); Carbon Dioxide 24 mmol/L (20-30); Chloride 105 mmol/L (98-107); Glucose 105 mg/dL (74-106); Lipase 21 U/L (12-53); Potassium 3.6 mmol/L (3.5-5.1); Sodium 135 mmol/L (136-145); Total Protein 6.8 g/dL (5.7-8.2)
[2023-03-21 05:55] LABS: BUN/Creatinine Ratio 11.9 (10.0-20.0); Blood Urea Nitrogen < 5 mg/dL (9-23)
[2023-03-21 05:56] LABS: Alanine Aminotransferase < 9 U/L (7-40)
[2023-03-21] MEDS: ENSURE CLEAR Apple 8oz Carton PO SCH ×5 (06:28→22:00)
[2023-03-21] MEDS: PANTOPRAZOLE 40 MG/10 ML VIAL INJ IV SCH (09:44)
[2023-03-21] MEDS: FLORASTOR (S. BOULARDII) 250 MG CAP PO SCH (09:44)
[2023-03-21] MEDS: SOD CHL 0.9%/ KCL 20MEQ 1,000 ML IV SCH (09:45)
[2023-03-21] MEDS: ENOXAPARIN SOD 40 MG/0.4 ML SYRINGE SC SCH (09:49)
[2023-03-21] MEDS: SODIUM CHLOR 0.9% PF (SALINE LOCK) 10ML VIAL/SYR IV SCH ×2 (09:49→21:34)
[2023-03-21] MEDS: METOPROLOL TARTRATE 25 MG TAB PO SCH ×2 (09:49→21:34)
[2023-03-21] MEDS: CEFTRIAXONE SODIUM 2 GM in D5W 5% 100 ML IV SCH (09:55)
[2023-03-22] VITALS: BP 116/72; PULSE 117; PULSE 121; RESP 17; TEMP 99.6; O2SAT 91
== END 2023-03-22 00:58 | disposition short-term general hospital (02) | DRG 282 ==
LOC: ER 21:16 → TELE 02-22 09:14 → TELE-WESTW 02-22 23:15 → DOU IN ICU 02-25 20:04 → TELE-EAST 03-07 21:27 → DOU IN ICU 03-13 15:45
PROVIDERS: ADMIT Nurse Practitioner Family; ATTEND Nurse Practitioner Acute Care
PROC: 02HV33Z Insertion of Infusion Device into Superior Vena Cava, Percutaneous Approach (ICD-10-PCS; 2023-02-28)
PROC: B548ZZA Ultrasonography of Superior Vena Cava, Guidance (ICD-10-PCS; 2023-02-28)
PROC: 0W9G30Z Drainage of Peritoneal Cavity with Drainage Device, Percutaneous Approach (ICD-10-PCS; 2023-02-28)
PROC: 0W9G30Z Drainage of Peritoneal Cavity with Drainage Device, Percutaneous Approach (ICD-10-PCS; 2023-03-03)
PROC: 30233N1 Transfusion of Nonautologous Red Blood Cells into Peripheral Vein, Percutaneous Approach (ICD-10-PCS; principal; 2023-03-05)
PROC: 0WW Anatomical Regions, General, Revision (ICD-10-PCS; 2023-03-14)
DX: K85.90 Acute pancreatitis without necrosis or infection, unspecified (principal); A41.9 Sepsis, unspecified organism; K68.19 Other retroperitoneal abscess; N17.9 Acute kidney failure, unspecified; I31.9 Disease of pericardium, unspecified; D68.9 Coagulation defect, unspecified; E44.0 Moderate protein-calorie malnutrition; K74.60 Unspecified cirrhosis of liver; E86.0 Dehydration; K86.3 Pseudocyst of pancreas; K76.0 Fatty (change of) liver, not elsewhere classified; E87.1 Hypo-osmolality and hyponatremia; J98.11 Atelectasis; E87.6 Hypokalemia; B96.1 Klebsiella pneumoniae [K. pneumoniae] as the cause of diseases classified elsewhere; Z20.822 Contact with and (suspected) exposure to COVID-19; F17.210 Nicotine dependence, cigarettes, uncomplicated; K86.1 Other chronic pancreatitis; F10.10 Alcohol abuse, uncomplicated; Y90.9 Presence of alcohol in blood, level not specified; Z68.1 Body mass index [BMI] 19.9 or less, adult
CPT/HCPCS: 10005; 36415; 36569; 71045; 71046; 71275; 74150; 74176; 74177; 75984; 75989; 76705; 76942; 77012; 80048; 80053; 80061; 80202; 80307; 80320; 80329; 81001; 82150; 82306; 82565; 82607; 82746; 82962; 83036; 83605; 83690; 83735; 84100; 84425; 84439; 84443; 84478; 84481; 84484; 85007; 85014; 85018; 85025; 85027; 85379; 85610; 85730; 86301; 86803; 86850; 86900; 86901; 86920; 87040; 87077; 87081; 87186; 87205; 87340; 87426; 87804; 93005; 93306; 93971; 96360; 96372; 99152; C1729; C9113; G0378; J0131; J0692; J0696; J1815; J1956; J2001; J2185; J2250; J2405; J3480; J3490; J7060; J7131